=== PATIENT | male | born 1930 | race Hispanic/Latino ===

== ENCOUNTER 2016-07-31 10:01 | Emergency (ER) | payer BC, MEDICARE ==
[2016-07-31 10:16] VITALS: BMI 34.0
[2016-07-31 10:20] VITALS: TEMP 98.7
[2016-07-31] MEDS ORDERED: Albuterol-Ipratrop 3 mg / 0.5 (3 ml) UD IH STA ×3 (11:00→12:37)
[2016-07-31 11:37] VITALS: RESP 18
--- NOTE | 2016-07-31 12:03 | RAD ---
HISTORY: cough r/o pna COMPARISON: 10/21/2015 TECHNIQUE: Chest PA and lateral FINDINGS: LUNGS: No active pulmonary disease. PLEURA: No significant pleural effusion identified. No pneumothorax apparent. CARDIOVASCULAR: Normal heart size. Status post CABG. Sternotomy wires noted. OSSEOUS STRUCTURES: No significant abnormalities. VISUALIZED UPPER ABDOMEN: Normal. OTHER FINDINGS: None. IMPRESSION: No active disease.
--- NOTE | 2016-07-31 12:08 | ED PDOC ---
Arrival/HPI - General Chief Complaint: Cough, Cold, Congestion Time Seen by Provider: 07/31/16 10:55 Historian: Patient - History of Present Illness Narrative History of Present Illness (Text): 07/31/16 12:17 An 86 year old male, whose past medical history includes hypertension, diabetes and cardiac bypass, presents to the emergency department complaining of a productive cough for the past 2 weeks. Patient's daughter notes patient went to PMD who told patient to come to emergency department for a CXR. Patient denies any fever, body aches or any other complaints at this time. PMD: Dr. Cartagena Time/Duration: Other (2 weeks) Symptom Onset: Sudden Symptom Course: Unchanged Activities at Onset: Rest Context: Home Associated Symptoms (Text): none Past Medical History - Provider Review Nursing Documentation Reviewed: Yes - Infectious Disease Hx of Infectious Diseases: None - Tetanus Immunization Tetanus Immunization: Unknown - Cardiac Hx Cardiac Disorders: Yes (CAD, CABG) Hx Hypertension: Yes - Pulmonary Hx Respiratory Disorders: No - Neurological Hx Neurological Disorder: No Hx Alzheimer's Disease: No - HEENT Hx HEENT Disorder: No - Renal Hx Renal Disorder: No - Endocrine/Metabolic Hx Diabetes Mellitus Type 2: Yes - Hematological/Oncological Hx Blood Disorders: No - Integumentary Hx Dermatological Disorder: No - Musculoskeletal/Rheumatological Hx Falls: No Hx Fractures: Yes (Ankle fracture as a child) - Gastrointestinal Hx Gastrointestinal Disorders: No - Genitourinary/Gynecological Hx Genitourinary Disorders: No - Psychiatric Hx Depression: No Hx Emotional Abuse: No Hx Physical Abuse: No Hx Substance Use: No - Surgical History Hx Coronary Artery Bypass Graft: Yes (2007) Hx Open Heart Surgery: Yes (2007) - Anesthesia Hx Anesthesia: Yes Hx Anesthesia Reactions: No Hx Malignant Hyperthermia: No - Suicidal Assessment Feels Threatened In Home Enviroment: No Family/Social History - Physician Review Nursing Documentation Reviewed: Yes Family/Social History: No Known Family HX Smoking Status: Former Smoker Hx Alcohol Use: No Hx Substance Use: No Hx Substance Use Treatment: No Allergies/Home Meds Allergies/Adverse Reactions: Allergies No Known Allergies Allergy (Verified 07/31/16 10:16) Home Medications: Home Meds Medication Instructions Recorded Confirmed Aspirin [Aspir 81] 325 mg PO DAILY 05/01/12 07/31/16 Atorvastatin Calcium 20 mg PO DAILY 05/01/12 07/31/16 Glipizide 20 mg PO DAILY 05/01/12 07/31/16 Linagliptin [Tradjenta] 5 mg PO DAILY 05/01/12 07/31/16 Metoprolol Succinate 50 mg PO DAILY 05/01/12 07/31/16 Insulin Human Isophane (NPH) 30 units SC ACB 06/07/14 07/31/16 [Novolin N] Losartan [Cozaar] 50 mg PO DAILY 10/21/15 07/31/16 Apafm-2-Nlic Ethyl Esters [OMEGA 3] 1 cap PO TID 10/21/15 07/31/16 Review of Systems - Physician Review All systems were reviewed & negative as marked: Yes - Review of Systems Constitutional: absent: Fevers, Other (body aches) Eyes: Normal ENT: Normal Respiratory: Cough Cardiovascular: Normal Gastrointestinal: Normal Genitourinary Male: Normal Musculoskeletal: Normal Skin: Normal Neurological: Normal Endocrine: Normal Hemo/Lymphatic: Normal Psychiatric: Normal Physical Exam Vital Signs Reviewed: Yes Vital Signs Temp Pulse Resp BP Pulse Ox 07/31/16 12:19 63 18 124/69 94 L 07/31/16 11:37 65 18 126/75 93 L 07/31/16 10:19 98.7 F 86 19 172/76 H 93 L Temperature: Afebrile Blood Pressure: Hypertensive Pulse: Regular Respiratory Rate: Normal Appearance: Positive for: Well-Appearing, Non-Toxic, Comfortable Pain Distress: None Mental Status: Positive for: Alert and Oriented X 3 - Systems Exam Head: Present: Atraumatic, Normocephalic Pupils: Present: PERRL Extroacular Muscles: Present: EOMI Conjunctiva: Present: Normal Mouth: Present: Moist Mucous Membranes Neck: Present: Normal Range of Motion Respiratory/Chest: Present: Clear to Auscultation, Good Air Exchange. No: Respiratory Distress, Accessory Muscle Use Cardiovascular: Present: Regular Rate and Rhythm, Normal S1, S2. No: Murmurs Abdomen: Present: Normal Bowel Sounds. No: Tenderness, Distention, Peritoneal Signs Back: Present: Normal Inspection Upper Extremity: Present: Normal Inspection. No: Cyanosis, Edema Lower Extremity: Present: Normal Inspection. No: Edema Neurological: Present: GCS=15, CN II-XII Intact, Speech Normal Skin: Present: Warm, Dry, Normal Color. No: Rashes Psychiatric: Present: Alert, Oriented x 3, Normal Insight, Normal Concentration Medical Decision Making ED Course and Treatment: 07/31/16 12:12 Impression: An 86 year old male with a productive cough. Differential Diagnosis included but are not limited to: bronchitis vs. PNA Plan: -- chest xray -- Duoneb -- Reassess and disposition Prior Visits: Notes and results from previous visits were reviewed. Patient last reported to the emergency department on 03/11/16 for evaluation of right wrist pain and swelling. Progress Notes: 07/31/16 12:04 chest xray Creator : Bridger Tierney MD IMPRESSION: No active disease. On reevaluation patient feels much better. Lungs clear. Oxy sat 95-96% on room air. Patient able to walk around the ED without sob. He will follow up with his doctor in 1-2days. - Lab Interpretations Lab Results: 07/31/16 12:30 07/31/16 12:30 Lab Results 07/31/16 12:30: Sodium 136, Potassium 4.9, Chloride 98, Carbon Dioxide 32, Anion Gap 11, BUN 26 H, Creatinine 1.0, Est GFR ( Amer) > 60, Est GFR ( Non-Af Amer) > 60, Random Glucose 200 H, Calcium 9.0, Magnesium 2.0 07/31/16 12:30: WBC 9.7, RBC 5.30, Hgb 16.1, Hct 49.7, MCV 93.8, MCH 30.4, MCHC 32.4, RDW 14.4, Plt Count 125, MPV 11.1 H, Gran % 73.2 H, Lymph % (Auto) 17.9 L , [place] % (Auto) 6.9 H, Eos % (Auto) 1.8, Baso % (Auto) 0.2, Gran # 7.12 H, Lymph # 1.7, [place] # 0.7 H, Eos # 0.2, Baso # 0.02 I have reviewed the lab results: Yes - RAD Interpretation Radiology Orders: 07/31/16 11:00 CHEST TWO VIEWS (PA/LAT) [RAD] Stat - Medication Orders Current Medication Orders: Discontinued Medications Albuterol/Ipratropium (Duoneb 3 Mg/0.5 Mg (3 Ml) Ud) 3 ml IH STAT STA Stop: 07/31/16 11:01 Last Admin: 07/31/16 11:19 Dose: 3 ml Albuterol/Ipratropium (Duoneb 3 Mg/0.5 Mg (3 Ml) Ud) 3 ml IH STAT STA Stop: 07/31/16 11:54 Last Admin: 07/31/16 12:08 Dose: 3 ml Albuterol/Ipratropium (Duoneb 3 Mg/0.5 Mg (3 Ml) Ud) 3 ml IH STAT STA Stop: 07/31/16 12:38 Last Admin: 07/31/16 13:23 Dose: - Scribe Statement The provider has reviewed the documentation as recorded by the Galina Hayes Provider Scribe Attestation: All medical record entries made by the Scribe were at my direction and personally dictated by me. I have reviewed the chart and agree that the record accurately reflects my personal performance of the history, physical exam, medical decision making, and the department course for this patient. I have also personally directed, reviewed, and agree with the discharge instructions and disposition. Disposition/Present on Arrival - Present on Arrival Any Indicators Present on Arrival: No History of DVT/PE: No History of Uncontrolled Diabetes: No Urinary Catheter: No History of Decub. Ulcer: No History Surgical Site Infection Following: None - Disposition Have Diagnosis and Disposition been Completed?: Yes Diagnosis: Bronchitis Disposition: HOME/ ROUTINE Disposition Time: 13:24 Patient Plan: Discharge Condition: IMPROVED Discharge Instructions (ExitCare): Acute Bronchitis (ED) Additional Instructions: Mr Paul, thank you for letting us take care of you today. Your provider was Dr. Vargas. You were treated for Bronchitis. The emergency medical care you received today was directed at your acute symptoms. If you were prescribed any medication, please fill it and take as directed. It may take several days for your symptoms to resolve. Return to the Emergency Department if your symptoms worsen, do not improve, or if you have any other problems. Please contact your doctor or call one of the physicians/clinics you have been referred to that are listed on the Patient Visit Information form that is included in your discharge packet. Bring any paperwork you were given at discharge with you along with any medications you are taking to your follow up visit. Our treatment cannot replace ongoing medical care by a primary care provider (PCP) outside of the emergency department. Thank you for allowing the [facility] team to be part of your care today. If you had an X-Ray or CT scan: A Radiologist will review the ED reading if any change in treatment is needed we will contact you. If you had a blood, urine, or wound culture: It will take several days for the results, if any change in treatment is needed we will contact you. If you had an STI test: It will take 48 hours for the results. Please call after 1 week if you have not heard back. Prescriptions: Guaifenesin [Mucinex] 600 mg PO Q12 PRN #30 tab.er.12h PRN Reason: Cough Referrals: Alex Cartagena MD [Primary Care Provider] - Follow up with primary Forms: [email or web address] (Armenian)
[2016-07-31 12:19] VITALS: BP 124/69; PULSE 63; O2SAT 94
[2016-07-31 12:36] LABS: ADD MANUAL DIFF? NO
[2016-07-31 12:40] LABS: BASO # 0.02 K/mm3 (0.0-2.0); BASO % 0.2 % (0.0-3.0); EOS # 0.2 (0.0-0.7); EOS % 1.8 % (1.5-5.0); GRAN # 7.12 (1.4-6.5); GRAN % 73.2 % (50.0-68.0); HEMATOCRIT 49.7 % (42.0-52.0); LYMPH # 1.7 (1.2-3.4); LYMPH % 17.9 % (22.0-35.0); MEAN CELL VOLUME 93.8 fL (80.0-105.0); MEAN CORPUSCULAR HEMOGLOBIN 30.4 pg (25.0-35.0); MEAN CORPUSCULAR HGB CONC 32.4 g/dl (31.0-37.0); MEAN PLATELET VOLUME 11.1 fl (7.0-11.0); MONO # 0.7 (0.1-0.6); MONO % 6.9 % (1.0-6.0); PLATELET COUNT 125 10^3/uL (120.0-450.0); RED CELL DISTRIBUTION WIDTH 14.4 % (11.5-14.5); WHITE BLOOD COUNT 9.7 10^3/ul (4.5-11.0)
[2016-07-31 12:48] LABS: BLOOD UREA NITROGEN 26 mg/dL (7-21); CARBON DIOXIDE 32 mmol/L (21-33); CHLORIDE 98 mmol/L (98-107); GFR AFRICAN-AMERICAN > 60; GLUCOSE,RANDOM 200 mg/dL (70-110); POTASSIUM 4.9 mmol/L (3.6-5.0); SODIUM 136 mmol/L (132-148)
== END 2016-07-31 13:25 | disposition home or self-care (01) ==
LOC: ED 10:01
DX: J20.9 Acute bronchitis, unspecified (principal); I25.10 Atherosclerotic heart disease of native coronary artery without angina pectoris; I10 Essential (primary) hypertension; Z95.1 Presence of aortocoronary bypass graft; Z87.891 Personal history of nicotine dependence

== ENCOUNTER 2016-11-11 01:41 | Inpatient (IN) | payer BC, MEDICARE ==
[2016-11-11 01:46] VITALS: BMI 35.0
[2016-11-11] MEDS ORDERED: Morphine 2 mg/ml ISec IVP PRN ×2 (02:05→04:08)
--- NOTE | 2016-11-11 02:10 | ED PDOC ---
Arrival/HPI - General Chief Complaint: Abdominal Pain Time Seen by Provider: 11/11/16 01:43 Historian: Patient - History of Present Illness Narrative History of Present Illness (Text): 11/11/16 02:09 An 86 year old male, whose past medical history includes cardiac bypass, diabetes and hypertension, presents to the emergency department complaining of diffuse abdominal pain and back pain. Patient denies any nausea, vomiting, diarrhea or any other complaints at this time. PMD: Dr. Cartagena Symptom Onset: Sudden Symptom Course: Unchanged Activities at Onset: Rest Context: Home Past Medical History - Provider Review Nursing Documentation Reviewed: Yes - Infectious Disease Hx of Infectious Diseases: None - Tetanus Immunization Tetanus Immunization: Unknown - Cardiac Hx Cardiac Disorders: Yes (CAD, CABG) Hx Hypertension: Yes - Pulmonary Hx Respiratory Disorders: No - Neurological Hx Neurological Disorder: No Hx Alzheimer's Disease: No - HEENT Hx HEENT Disorder: No - Renal Hx Renal Disorder: No - Endocrine/Metabolic Hx Diabetes Mellitus Type 2: Yes - Hematological/Oncological Hx Blood Disorders: No - Integumentary Hx Dermatological Disorder: No - Musculoskeletal/Rheumatological Hx Falls: No Hx Fractures: Yes (Ankle fracture as a child) - Gastrointestinal Hx Gastrointestinal Disorders: No - Genitourinary/Gynecological Hx Genitourinary Disorders: No - Psychiatric Hx Depression: No Hx Emotional Abuse: No Hx Physical Abuse: No Hx Substance Use: No - Surgical History Hx Coronary Artery Bypass Graft: Yes (2007) Hx Open Heart Surgery: Yes (2007) - Anesthesia Hx Anesthesia: Yes Hx Anesthesia Reactions: No Hx Malignant Hyperthermia: No - Suicidal Assessment Feels Threatened In Home Enviroment: No Family/Social History - Physician Review Nursing Documentation Reviewed: Yes Family/Social History: No Known Family HX Smoking Status: Former Smoker Hx Alcohol Use: No Hx Substance Use: No Hx Substance Use Treatment: No Allergies/Home Meds Allergies/Adverse Reactions: Allergies No Known Allergies Allergy (Verified 11/11/16 01:48) Home Medications: Home Meds Medication Instructions Recorded Confirmed Aspirin [Aspir 81] 325 mg PO DAILY 05/01/12 11/11/16 Atorvastatin Calcium 20 mg PO DAILY 05/01/12 11/11/16 Glipizide 20 mg PO DAILY 05/01/12 11/11/16 Linagliptin [Tradjenta] 5 mg PO DAILY 05/01/12 11/11/16 Metoprolol Succinate 50 mg PO DAILY 05/01/12 11/11/16 Insulin Human Isophane (NPH) 30 units SC ACB 06/07/14 11/11/16 [Novolin N] Losartan [Cozaar] 50 mg PO DAILY 10/21/15 11/11/16 Review of Systems - Physician Review All systems were reviewed & negative as marked: Yes - Review of Systems Gastrointestinal: Abdominal Pain. absent: Diarrhea, Nausea, Vomiting Musculoskeletal: Back Pain Physical Exam Vital Signs Reviewed: Yes Vital Signs Temp Pulse Resp BP Pulse Ox 11/11/16 04:12 66 18 175/89 H 95 11/11/16 01:48 98.0 F 70 21 181/77 H 94 L 11/11/16 01:47 98.0 F 73 18 181/77 H 94 L Temperature: Afebrile Blood Pressure: Hypertensive Pulse: Regular Respiratory Rate: Normal Appearance: Positive for: Well-Appearing, Non-Toxic, Comfortable Pain Distress: None Mental Status: Positive for: Alert and Oriented X 3 - Systems Exam Head: Present: Atraumatic, Normocephalic Pupils: Present: PERRL Extroacular Muscles: Present: EOMI Conjunctiva: Present: Normal Mouth: Present: Moist Mucous Membranes Neck: Present: Normal Range of Motion Respiratory/Chest: Present: Clear to Auscultation, Good Air Exchange. No: Respiratory Distress, Accessory Muscle Use Cardiovascular: Present: Regular Rate and Rhythm, Normal S1, S2. No: Murmurs Abdomen: Present: Normal Bowel Sounds. No: Tenderness, Distention, Peritoneal Signs Back: Present: Normal Inspection Upper Extremity: Present: Normal Inspection. No: Cyanosis, Edema Lower Extremity: Present: Normal Inspection. No: Edema Neurological: Present: GCS=15, CN II-XII Intact, Speech Normal Skin: Present: Warm, Dry, Normal Color. No: Rashes Psychiatric: Present: Alert, Oriented x 3, Normal Insight, Normal Concentration Medical Decision Making ED Course and Treatment: 11/11/16 02:08 Impression: An 86 year old male with abdominal pain and back pain. Plan: -- EKG -- labs -- CT abd/pelvis -- Urinalysis -- Morphine, IV fluids, Zofran -- Reassess and disposition Prior Visits: Notes and results from previous visits were reviewed. Patient was last seen in the emergency department on 07/31/16 for evaluation of productive cough. Progress Notes: EKG: Ordered, reviewed, and independently interpreted the EKG. Rate : 71 BPM Rhythm : NSR Interpretation : Right bundle branch block, Nonspecific ST segment changes CT Abdomen and Pelvis Without Intravenous Contrast FINDINGS: Limitations: Lack of intravenous contrast. Motion artifact - mild. Lower thorax: Coronary artery calcifications. ABDOMEN: Liver: Unremarkable. Gallbladder and bile ducts: Calcified gallstones. Minimal haziness about gallbladder versus motion. No ductal dilation. Pancreas: Unremarkable. No ductal dilation. Spleen: No splenomegaly. 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 Kidneys and ureters: No renal calculi. No hydronephrosis. Stomach and bowel: Few scattered diverticula within colon. No associated inflammatory stranding. No definite mural thickening. No obstruction. Appendix: Normal caliber. No inflammation. PELVIS: Bladder: Few small calcifications/calculi along posterior wall of bladder. Reproductive: Mildly enlarged prostate. ABDOMEN and PELVIS: Intraperitoneal space: No significant fluid collection. No free air. Bones/joints: Median sternotomy. Degenerative changes of spine. No acute fracture. Soft tissues: Tiny umbilical hernia containing fat. Tiny RIGHT inguinal hernia containing fat. Vasculature: Extensive atherosclerotic disease. No aneurysm. Lymph nodes: No pathologically enlarged lymph nodes. IMPRESSION: 1. Cholelithiasis. Suggest ultrasound. 2. Bladder calcification/calculi. 3. Incidental/non-acute findings are described above. Dictated and Authenticated by: Jaya Resendez MD 11/11/2016 3:46 AM Eastern Time ([place] & [place]) case d/w dr justice accepts case 11/12/16 02:14 - Lab Interpretations Lab Results: 11/11/16 02:25 11/11/16 02:25 Lab Results 11/11/16 02:25: Sodium 141, Potassium 5.3 H, Chloride 98, Carbon Dioxide 36 H, Anion Gap 12, BUN 24 H, Creatinine 1.2, Est GFR ( Amer) > 60, Est GFR ( Non-Af Amer) 58, Random Glucose 279 H, Calcium 9.2, Total Bilirubin 0.6, AST 28 , ALT 40, Alkaline Phosphatase 68, Lactate Dehydrogenase 543, Total Creatine Kinase 66, Troponin I < 0.01, Total Protein 6.9, Albumin 3.8, Globulin 3.1, Albumin/Globulin Ratio 1.2, Amylase 81, Lipase 90 11/11/16 02:25: Urine Color Yellow, Urine Appearance Clear, Urine pH 6.0, Ur Specific [place] 1.020, Urine Protein 100 H, Urine Glucose (UA) >=1000, Urine Ketones Negative, Urine Blood Trace-intact H, Urine Nitrate Negative, Urine Bilirubin Negative, Urine Urobilinogen 0.2, Ur Leukocyte Esterase Negative, Urine RBC 0 - 2, Urine WBC 0 - 2, Ur Epithelial Cells 1 - 3, Urine Bacteria Small 11/11/16 02:25: PT 10.4, INR 0.96, APTT 25.8 11/11/16 02:25: WBC 7.7 D, RBC 5.38, Hgb 16.4, Hct 49.6, MCV 92.2, MCH 30.5, MCHC 33.1, RDW 14.2, Plt Count 127, MPV 10.5, Gran % 70.7 H, Lymph % (Auto) 20.2 L, [place] % (Auto) 7.2 H, Eos % (Auto) 1.6, Baso % (Auto) 0.3, Gran # 5.42, Lymph # 1.6, [place] # 0.6, Eos # 0.1, Baso # 0.02 I have reviewed the lab results: Yes - RAD Interpretation Radiology Orders: 11/11/16 02:04 ABD & PELVIS W/O PO OR IV CONT [CT] Stat - EKG Interpretation Interpreted by ED Physician: Yes Type: 12 lead EKG - Medication Orders Current Medication Orders: Acetaminophen (Tylenol 325mg Tab) 650 mg PO Q4H PRN PRN Reason: Fever >100.5 F Aspirin (Aspirin Chewable) 81 mg PO DAILY [facility] Last Admin: 11/11/16 10:41 Dose: 81 mg Sodium Chloride (Sodium Chloride 0.9%) 1,000 mls @ 80 mls/hr IV .[id number] [facility] Last Admin: 11/11/16 14:48 Dose: 80 mls/hr eMAR Start Stop Document 11/11/16 14:48 LMN (Rec: 11/11/16 14:48 LMN [id number]) Intravenous Solution Start Date 11/11/16 Start Time 15:00 Insulin Human Regular (Humulin R Low) 0 units SC ACHS [facility] PRN Reason: Protocol Last Admin: 11/11/16 22:05 Dose: Not Given Non-Admin Reason: Blood Sugar Parameter [facility] Blood Glucose Document 11/11/16 22:05 [facility] (Rec: 11/11/16 22:06 [id number] Blood Glucose Finger Stick Blood Glucose (70-120) 165 Losartan Potassium (Cozaar) 50 mg PO DAILY [facility] Last Admin: 11/11/16 10:41 Dose: 50 mg Losartan Potassium (Cozaar) 50 mg PO DAILY [facility] Metoprolol Succinate (Toprol Xl) 50 mg PO DAILY [facility] Last Admin: 11/11/16 11:19 Dose: 50 mg Morphine Sulfate (Morphine) 2 mg IVP Q4H PRN PRN Reason: Pain, moderate (4-7) Last Admin: 11/11/16 02:31 Dose: 2 mg [facility] Pain Assessment Document 11/11/16 02:31 RD (Rec: 11/11/16 02:31 RD [id number]) Pain Reassessment Is this a pain reassessment? No Sleep Is patient sleeping during reassessment? No Presence of Pain Presence of Pain Yes IVP Administration Document 11/11/16 02:31 RD (Rec: 11/11/16 02:31 RD [id number]) Charges for Administration # of IVP Administrations 1 Re-Assess: [facility] Pain Assessment Document 11/11/16 03:31 RD (Rec: 11/11/16 04:22 RD [id number]) Pain Reassessment Is this a pain reassessment? Yes Sleep Is patient sleeping during reassessment? No Presence of Pain Presence of Pain Yes Description Intensity of Pain at present 5 Morphine Sulfate (Morphine) 2 mg IVP Q4H PRN PRN Reason: Pain, moderate (4-7) Pantoprazole Sodium (Protonix Inj) 40 mg IVP Q12 [facility] Last Admin: 11/11/16 22:03 Dose: 40 mg IVP Administration Document 11/11/16 22:03 [facility] (Rec: 11/11/16 22:04 [id number]) Charges for Administration # of IVP Administrations 1 Discontinued Medications Metronidazole (Flagyl) 500 mg in 100 mls @ 100 mls/hr IVPB STAT STA PRN Reason: Protocol Stop: 11/11/16 05:07 Last Admin: 11/11/16 05:12 Dose: 100 mls/hr eMAR Start Stop Document 11/11/16 05:12 EM (Rec: 11/11/16 05:13 EM [facility] [id number]) Intravenous Solution Start Date 11/11/16 Start Time 05:12 End Date 11/11/16 End time 06:20 Total Infusion Time 68 Ceftriaxone Sodium (Rocephin 1 Gram Ivpb) 1 gm in 100 mls @ 200 mls/hr IVPB STAT STA PRN Reason: Protocol Stop: 11/11/16 04:37 Last Admin: 11/11/16 04:21 Dose: 200 mls/hr eMAR Start Stop Document 11/11/16 04:21 RD (Rec: 11/11/16 04:21 RD [id number]) Intravenous Solution Start Date 11/11/16 Start Time 04:21 End Date 11/11/16 End time 04:51 Total Infusion Time 30 Sodium Chloride (Sodium Chloride 0.9%) 1,000 mls @ 100 mls/hr IV .Q10H STA Stop: 11/11/16 14:04 Last Admin: 11/11/16 04:20 Dose: 100 mls/hr eMAR Start Stop Document 11/11/16 04:20 RD (Rec: 11/11/16 04:20 RD [id number]) Intravenous Solution Start Date 11/11/16 Start Time 04:20 Morphine Sulfate (Morphine) 2 mg IVP STAT STA Stop: 11/11/16 04:10 Last Admin: 11/11/16 04:18 Dose: 2 mg MAR Pain Assessment Document 11/11/16 04:18 RD (Rec: 11/11/16 04:21 RD [id number]) Pain Reassessment Is this a pain reassessment? Yes Sleep Is patient sleeping during reassessment? No Presence of Pain Presence of Pain Yes Description Intensity of Pain at present 5 IVP Administration Document 11/11/16 04:18 RD (Rec: 11/11/16 04:21 RD [id number]) Charges for Administration # of IVP Administrations 1 Ondansetron HCl (Zofran Inj) 4 mg IVP STAT STA Stop: 11/11/16 02:06 Last Admin: 11/11/16 02:27 Dose: 4 mg IVP Administration Document 11/11/16 02:27 RD (Rec: 11/11/16 02:31 RD [id number]) Charges for Administration # of IVP Administrations 1 - Scribe Statement The provider has reviewed the documentation as recorded by the Liseibmarion Hayes Provider Scribe Attestation: All medical record entries made by the Liseibe were at my direction and personally dictated by me. I have reviewed the chart and agree that the record accurately reflects my personal performance of the history, physical exam, medical decision making, and the department course for this patient. I have also personally directed, reviewed, and agree with the discharge instructions and disposition. Disposition/Present on Arrival - Present on Arrival Any Indicators Present on Arrival: No History of DVT/PE: No History of Uncontrolled Diabetes: No Urinary Catheter: No History of Decub. Ulcer: No History Surgical Site Infection Following: None - Disposition Have Diagnosis and Disposition been Completed?: Yes Diagnosis: Cholelithiasis, Abdominal pain Disposition: HOSPITALIZED Disposition Time: 04:04 Condition: FAIR
[2016-11-11] MEDS: Sodium Chloride 0.9% 1,000 ML IV SCH ×2 (02:31→14:48)
[2016-11-11 02:55] LABS: BASO # 0.02 K/mm3 (0.0-2.0); BASO % 0.3 % (0.0-3.0); EOS # 0.1 (0.0-0.7); EOS % 1.6 % (1.5-5.0); GRAN # 5.42 (1.4-6.5); GRAN % 70.7 % (50.0-68.0); HEMATOCRIT 49.6 % (42.0-52.0); LYMPH # 1.6 (1.2-3.4); LYMPH % 20.2 % (22.0-35.0); MEAN CELL VOLUME 92.2 fl (80.0-105.0); MEAN CORPUSCULAR HEMOGLOBIN 30.5 pg (25.0-35.0); MEAN CORPUSCULAR HGB CONC 33.1 g/dl (31.0-37.0); MEAN PLATELET VOLUME 10.5 fl (7.0-11.0); MONO # 0.6 (0.1-0.6); MONO % 7.2 % (1.0-6.0); RED CELL DISTRIBUTION WIDTH 14.2 % (11.5-14.5); URINE BILIRUBIN NEGATIVE (NEGATIVE); URINE BLOOD TRACE-INTACT (NEGATIVE); URINE GLUCOSE (UA) >=1000 mg/dL (NEGATIVE); URINE KETONE NEGATIVE (NEGATIVE); URINE LEUKOCYTE ESTERASE NEGATIVE Leu/uL (NEGATIVE); URINE PROTEIN 100 mg/dL (<30 mg/dL); URINE UROBILINOGEN 0.2 E.U./dL (<1 E.U./dL); WHITE BLOOD COUNT 7.7 10^3/ul (4.5-11.0)
[2016-11-11 03:01] LABS: INR 0.96 (0.93-1.08); PARTIAL THROMBOPLASTIN TIME 25.8 Seconds (23.7-30.8)
[2016-11-11 03:04] LABS: ALB/GLOB RATIO 1.2 (1.1-1.8); ALKALINE PHOSPHATASE 68 U/L (38-126); ALT/SGPT 40 U/L (7-56); AMYLASE 81 U/L (35-125); AST/SGOT 28 U/L (17-59); BILIRUBIN,TOTAL 0.6 mg/dL (0.2-1.3); BLOOD UREA NITROGEN 24 mg/dL (7-21); CALCIUM 9.2 mg/dL (8.4-10.5); CARBON DIOXIDE 36 mmol/L (21-33); CHLORIDE 98 mmol/L (98-107); GFR AFRICAN-AMERICAN > 60; GLUCOSE,RANDOM 279 mg/dL (70-110); LIPASE 90 U/L (23-300); SODIUM 141 mmol/L (132-148); TOTAL PROTEIN 6.9 g/dL (5.8-8.3)
[2016-11-11 03:08] LABS: URINE APPEARANCE CLEAR (CLEAR); URINE COLOR YELLOW (YELLOW)
[2016-11-11 03:13] LABS: URINE BACTERIA SMALL (NEG); URINE RBC 0 - 2 /hpf (0-2); URINE WBC 0 - 2 /hpf (0-6)
[2016-11-11 03:16] LABS: TROPONIN I < 0.01 ng/mL
[2016-11-11 03:18] LABS: POTASSIUM 5.3 mmol/L (3.6-5.0)
--- NOTE | 2016-11-11 03:47 | CT ---
EXAM: CT Abdomen and Pelvis Without Intravenous Contrast CLINICAL HISTORY: 86 years old, male; Pain; Abdominal pain; Generalized; Additional info: Abd pain TECHNIQUE: Axial computed tomography images of the abdomen and pelvis without intravenous contrast. All CT scans at this facility use one or more dose reduction techniques, viz.: automated exposure control; ma/kV adjustment per patient size (including targeted exams where dose is matched to indication; i.e. head); or iterative reconstruction technique. Coronal and sagittal reformatted images were created and reviewed. COMPARISON: No relevant prior studies available. FINDINGS: Limitations: Lack of intravenous contrast. Motion artifact - mild. Lower thorax: Coronary artery calcifications. ABDOMEN: Liver: Unremarkable. Gallbladder and bile ducts: Calcified gallstones. Minimal haziness about gallbladder versus motion. No ductal dilation. Pancreas: Unremarkable. No ductal dilation. Spleen: No splenomegaly. 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 Kidneys and ureters: No renal calculi. No hydronephrosis. Stomach and bowel: Few scattered diverticula within colon. No associated inflammatory stranding. No definite mural thickening. No obstruction. Appendix: Normal caliber. No inflammation. PELVIS: Bladder: Few small calcifications/calculi along posterior wall of bladder. Reproductive: Mildly enlarged prostate. ABDOMEN and PELVIS: Intraperitoneal space: No significant fluid collection. No free air. Bones/joints: Median sternotomy. Degenerative changes of spine. No acute fracture. Soft tissues: Tiny umbilical hernia containing fat. Tiny RIGHT inguinal hernia containing fat. Vasculature: Extensive atherosclerotic disease. No aneurysm. Lymph nodes: No pathologically enlarged lymph nodes. IMPRESSION: 1. Cholelithiasis. Suggest ultrasound. 2. Bladder calcification/calculi. 3. Incidental/non-acute findings are described above.
[2016-11-11] MEDS ORDERED: Sodium Chloride 0.9% 1,000 ML IV STA (04:05)
[2016-11-11] MEDS ORDERED: cefTRIAXone 1 gm 1 GM/100 ML BAG IVPB STA (04:08)
[2016-11-11] MEDS ORDERED: metroNIDAZOLE IV 500 mg/100 ml 500 MG/100 ML BAG IVPB STA (04:08)
[2016-11-11] MEDS ORDERED: Morphine 2 mg/ml ISec IVP STA (04:09)
[2016-11-11] MEDS: Insulin Reg-LOW-Coverage SC SCH ×4 (08:28→22:05)
--- NOTE | 2016-11-11 08:54 | CARD ---
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
[2016-11-11] MEDS: Metoprolol Succinate 50 mg XL Tab PO SCH (11:19)
--- NOTE | 2016-11-11 12:38 | HP ---
HISTORY OF PRESENT ILLNESS: Mr. Paul is 86 years old male admitted to the hospital with diffuse abdominal pain. No nausea, no vomiting. He also complains of back pain. CAT scan of the abdomen did not show any acute pathology. He has cholelithiasis , no cholecystitis. He has a history of hypertension, CABG. Blood pressure controlled on current medication. No chest pain. Cardiovascular has been stable. He also has diabetes mellitus type 2. Blood sugar control on current medication as per the patient. PAST MEDICAL HISTORY: Diabetes mellitus type 2, coronary artery disease status post CABG, hypertension, COPD. PAST SURGICAL HISTORY: CABG in 2007. PERSONAL HISTORY: Former smoker. FAMILY HISTORY: Noncontributory. No positive history in mother and father. SOCIAL HISTORY: Lives at home. ALLERGIES: NO KNOWN DRUG ALLERGIES. HOME MEDICATIONS: Aspirin 81 mg daily, Lipitor 20 mg daily, glipizide 20 mg daily, Tradjenta 5 mg daily, metoprolol 50 mg daily, NPH insulin, Cozaar 50 mg daily. REVIEW OF SYSTEMS: As per HPI. Rest of 12-point review of systems reviewed and negative. PHYSICAL EXAMINATION: GENERAL: Comfortable in bed, in no acute distress. VITAL SIGNS: Temperature 98.7, heart rate 70 per minute, blood pressure 180/70, heart rate is 94 per minute, respiratory rate 18 per minute. HEENT: Normal. Mucosa pale. NECK: No lymphadenopathy. CHEST: Air entry present and equal bilaterally. No added sound. CARDIOVASCULAR: S1 and S2 normal. No murmur and no gallop. ABDOMEN: Soft and nontender. No hepatosplenomegaly. EXTREMITIES: No edema. NEUROLOGIC: Alert and oriented x3. No focal sensory or motor deficits. SKIN: Warm and dry. No rash. SPINE: Nontender. IMAGING: CT abdomen as per HPI. LABORATORY DATA: White count 7.7, hemoglobin 16.5, hematocrit 49.6, platelet count 127. Sodium 141, potassium 5.3, BUN 24, creatinine 1.2, glucose 279, granulocyte 70%, lymphocyte 20%, monocyte 7%. UA negative. Troponin negative. Calcium 9.2, bilirubin 0.6, AST 28, ALT 40, alkaline phosphatase 68, LDH 543, creatinine 1.2, potassium 5.3, sodium 141. ASSESSMENT: 1. Abdominal pain, cholelithiasis. 2. Coronary artery disease. 3. Diabetes mellitus type 2. 4. Hypertension. 5. Granulocytosis, monocytosis. PLAN: He will be admitted to the hospital. CAT scan is negative for acute pathology in the abdomen except gall stones. no cholecystitis. We will order ultrasound, GI consult with Dr. Simpson is requested. morphine 4 mg q.4h IV . p.r.n for pain. . metoprolol 50 mg daily, sliding scale insulin ordered. Hold antidiabetic medication as he is NPO. We will give metoprolol 50 mg daily, losartan 50 mg daily. IV fluids at 100 mL an hour, Protonix 20 mg IV b.i.d. Jami Sifuentes MD MTDD
--- NOTE | 2016-11-11 15:15 | CON ---
DATE: 11/11/2016 HISTORY OF PRESENT ILLNESS: The patient is an 86-year-old male who presents with acute abdominal pain after a visit to [place]. His symptoms apparently have resolved. PAST MEDICAL HISTORY: The patient's past medical history is notable for history of coronary artery bypass surgery. Cardiac catheterization performed 1 year ago revealed an ejection fraction of 45% with a patent VALIENTE to the LAD. He suffers from diabetes mellitus, hypertension, hypercholesterolemia and He is obese No chest pain, no shortness of breath noted. The patient participates in all physical therapy program. SOCIAL HISTORY: Negative smoker. REVIEW OF SYSTEMS: Fourteen-point review of systems was reviewed in detail. No cardiac symptomatology is noted. PHYSICAL EXAMINATION: VITAL SIGNS: Blood pressure is 171/72, heart rate is in the 60s. NECK: Negative JVD. LUNGS: Without rales. HEART: Reveals S1 and S2. EXTREMITIES: Without edema. DIAGNOSTIC DATA: EKG shows normal sinus rhythm with left anterior hemiblock and a right bundle-branch block. Troponins are negative. Glucose is 279. IMPRESSION 1. Cholelithiasis. 2. Hypertension. 3. Stable angina. 4. Coronary artery disease. 5. History of coronary artery bypass surgery. 6. 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 7. Diabetes mellitus. 8. Hypercholesterolemia. 9. Obesity. Given these findings, the patient's cardiac status is at its baseline. We will restart the losartan for blood pressure control. Awaiting GI input. Bridger Moreno MD
[2016-11-12] MEDS: Sodium Chloride 0.9% 1,000 ML IV SCH ×2 (02:16→17:34)
[2016-11-12] MEDS: Insulin Reg-LOW-Coverage SC SCH ×4 (08:00→22:02)
--- NOTE | 2016-11-12 10:00 | US ---
HISTORY: abd pain, cholecystitis COMPARISON: Abdomen pelvis CT without contrast dated 11/11/2016. TECHNIQUE: Sonographic evaluation of the abdomen. FINDINGS: LIVER: Measures 19.9 cm. Normal echogenicity of the liver parenchyma. No mass. No intrahepatic bile duct dilatation. GALLBLADDER: Gallbladder is distended with cholelithiasis and sludge with no definitive mural thickening or pericholecystic fluid collection demonstrated. There is no sonographic Webb's sign either. Clinically correlate nevertheless for potential cholecystitis. COMMON BILE DUCT: Measures 5.9 mm. No stones. No dilatation. PANCREAS: The tail of the pancreas is obscured by overlying bowel gas with remainder unremarkable. RIGHT KIDNEY: Measures 11.1cm. Normal echogenicity. No calculus, mass, or hydronephrosis. LEFT KIDNEY: Measures 13.4cm. Normal echogenicity. No calculus, mass, or hydronephrosis. SPLEEN: Normal in size and contour. No mass. AORTA: No aneurysmal dilatation. IVC: Unremarkable. OTHER FINDINGS: None. IMPRESSION: 1. Relatively extensive cholelithiasis appears intermixed with sludge in the gallbladder lumen with moderate gallbladder distention appreciated. No mural thickening, pericholecystic fluid collection or other acute findings. Clinically correlate for potential cholecystitis nevertheless. 2. The tail of the pancreas is obscured by overlying bowel gas with remainder unremarkable.
[2016-11-12] MEDS: Metoprolol Succinate 50 mg XL Tab PO SCH (10:47)
--- NOTE | 2016-11-12 11:09 | PN ---
CARDIOLOGY FOLLOWUP DATE: 11/12/2016 SUBJECTIVE: The patient is without symptoms. OBJECTIVE: VITAL SIGNS: Blood pressure 171/76 and heart rate is in the 70s. NECK: Negative JVD. LUNGS: Without rales. HEART: S1 and S2. EXTREMITIES: Without edema. LABORATORY DATA: Pending from today. IMPRESSION: 1. Stable angina. 2. Coronary artery disease. 3. Ischemic dilated cardiomyopathy. 4. History of coronary artery bypass surgery. 5. Diabetes mellitus. 6. Obesity. 7. Hypertension. PLAN: Given these findings, the patient has been restarted on his losartan and his beta-blockers. Awaiting GI decision on his cholelithiasis. Bridger Moreno MD
--- NOTE | 2016-11-12 13:15 | CP.PCM.HP ---
History of Present Illness - History of Present Illness History of Present Illness: PGY1 Note for Dr. Ricks HPI: Pt is a 86 y/o male w/ PMHx of DM Type II presents with constant diffuse abdominal pain since Saturday night. According to the pt, he was eating a fried egg sandwich in bed and the pain started soon after. Nothing makes the pain better or worse. Pt describes the pain as an "annoying" pain and denies any radiation. Severity is a 8/10. Patient denies any prior episodes. The pain has now resolved. Patient states he does not want any surgical intervention PMH: IDDM, CAD, HTN, COPD PSH: CABG in 2007, Hernia Repair, ankle surgery, hand surgery Medications: Acetaminophen, Aspirin, Insulin, Losartan, Metoprolol, Morphine sulphate, Pantoprazole, glipizide, Atorvastatin Allergies: NKDA Past Patient History - Infectious Disease Hx of Infectious Diseases: None - Tetanus Immunizations Tetanus Immunization: Unknown - Past Social History Smoking Status: Former Smoker - CARDIAC Hx Cardiac Disorders: Yes (CAD, CABG) Hx Hypertension: Yes - PULMONARY Hx Respiratory Disorders: No - NEUROLOGICAL Hx Neurological Disorder: No Hx Alzheimer's Disease: No - HEENT Hx HEENT Problems: No - RENAL Hx Chronic Kidney Disease: No - ENDOCRINE/METABOLIC Hx Diabetes Mellitus Type 2: Yes - HEMATOLOGICAL/ONCOLOGICAL Hx Blood Disorders: No - INTEGUMENTARY Hx Dermatological Problems: No - MUSCULOSKELETAL/RHEUMATOLOGICAL Hx Falls: No Hx Fractures: Yes (Ankle fracture as a child) - GASTROINTESTINAL Hx Gastrointestinal Disorders: No - GENITOURINARY/GYNECOLOGICAL Hx Genitourinary Disorders: No - PSYCHIATRIC Hx Depression: No Hx Emotional Abuse: No Hx Physical Abuse: No Hx Substance Use: No - SURGICAL HISTORY Hx Coronary Artery Bypass Graft: Yes (2007) Hx Open Heart Surgery: Yes (2007) - ANESTHESIA Hx Anesthesia: Yes Hx Anesthesia Reactions: No Hx Malignant Hyperthermia: No Meds Allergies/Adverse Reactions: Allergies Allergy/AdvReac Type Severity Reaction Status Date / Time No Known Allergies Allergy Verified 11/11/16 01:48 Results - Vital Signs Recent Vital Signs: Last Vital Signs Temp 98.5 F 11/12/16 07:30 Pulse 74 11/12/16 10:47 Resp 20 11/12/16 07:30 BP 130/66 11/12/16 10:47 Pulse Ox 92 L 11/12/16 07:30 - Labs Result Diagrams: 11/11/16 02:25 11/11/16 02:25 Labs: Laboratory Results - last 24 hr 11/11/16 11/11/16 11/11/16 07:18 11:13 16:20 POC Glucose (mg/dL) 271 H 247 H 189 H 11/11/16 21:13 POC Glucose (mg/dL) 165 H
--- NOTE | 2016-11-12 13:19 | CP.PCM.CON ---
History of Present Illness - History of Present Illness History of Present Illness: PGY1 Note for Dr. Ricks HPI: Pt is a 86 y/o male w/ PMHx of DM Type II presents with constant diffuse abdominal pain since Saturday night. According to the pt, he was eating a fried egg sandwich in bed and the pain started soon after. Nothing makes the pain better or worse. Pt describes the pain as an "annoying" pain and denies any radiation. Severity is a 8/10. Patient denies any prior episodes. The pain has now resolved. Patient states he does not want any surgical intervention. Patient is now tolerating regular diet without N/V/D PMH: IDDM, CAD, HTN, COPD PSH: CABG in 2007, Hernia Repair, ankle surgery, hand surgery Medications: Acetaminophen, Aspirin, Insulin, Losartan, Metoprolol, Morphine sulphate, Pantoprazole, glipizide, Atorvastatin Allergies: NKDA Review of Systems - Constitutional Constitutional: As Per HPI - EENT Eyes: As Per HPI Ears: As Per HPI Nose/Mouth/Throat: As Per HPI - Cardiovascular Cardiovascular: As Per HPI - Respiratory Respiratory: As Per HPI - Gastrointestinal Gastrointestinal: As Per HPI - Genitourinary Genitourinary: As Per HPI - Reproductive: Male Reproductive:Male: As Per HPI - Musculoskeletal Musculoskeletal: As Per HPI - Integumentary Integumentary: As Per HPI - Neurological Neurological: As Per HPI - Psychiatric Psychiatric: As Per HPI - Endocrine Endocrine: As Per HPI - Hematologic/Lymphatic Hematologic: As Per HPI Past Patient History - Infectious Disease Hx of Infectious Diseases: None - Tetanus Immunizations Tetanus Immunization: Unknown - Past Social History Smoking Status: Former Smoker - CARDIAC Hx Cardiac Disorders: Yes (CAD, CABG) Hx Hypertension: Yes - PULMONARY Hx Respiratory Disorders: No - NEUROLOGICAL Hx Neurological Disorder: No Hx Alzheimer's Disease: No - HEENT Hx HEENT Problems: No - RENAL Hx Chronic Kidney Disease: No - ENDOCRINE/METABOLIC Hx Diabetes Mellitus Type 2: Yes - HEMATOLOGICAL/ONCOLOGICAL Hx Blood Disorders: No - INTEGUMENTARY Hx Dermatological Problems: No - MUSCULOSKELETAL/RHEUMATOLOGICAL Hx Falls: No Hx Fractures: Yes (Ankle fracture as a child) - GASTROINTESTINAL Hx Gastrointestinal Disorders: No - GENITOURINARY/GYNECOLOGICAL Hx Genitourinary Disorders: No - PSYCHIATRIC Hx Depression: No Hx Emotional Abuse: No Hx Physical Abuse: No Hx Substance Use: No - SURGICAL HISTORY Hx Coronary Artery Bypass Graft: Yes (2007) Hx Open Heart Surgery: Yes (2007) - ANESTHESIA Hx Anesthesia: Yes Hx Anesthesia Reactions: No Hx Malignant Hyperthermia: No Meds Allergies/Adverse Reactions: Allergies Allergy/AdvReac Type Severity Reaction Status Date / Time No Known Allergies Allergy Verified 11/11/16 01:48 - Medications Medications: Current Medications Acetaminophen (Tylenol 325mg Tab) 650 mg PO Q4H PRN PRN Reason: Fever >100.5 F Aspirin (Aspirin Chewable) 81 mg PO DAILY [facility] Last Admin: 11/12/16 10:47 Dose: 81 mg Sodium Chloride (Sodium Chloride 0.9%) 1,000 mls @ 80 mls/hr IV .[id number] [facility] [place] Last Admin: 11/12/16 02:16 Dose: 80 mls/hr Insulin Human Regular (Humulin R Low) 0 units SC ACHS [facility] [place] PRN Reason: Protocol Last Admin: 11/12/16 12:03 Dose: 3 units Losartan Potassium (Cozaar) 50 mg PO DAILY [facility] [place] Last Admin: 11/12/16 10:46 Dose: 50 mg Metoprolol Succinate (Toprol Xl) 50 mg PO DAILY [facility] [place] Last Admin: 11/12/16 10:47 Dose: 50 mg Morphine Sulfate (Morphine) 2 mg IVP Q4H PRN PRN Reason: Pain, moderate (4-7) Last Admin: 11/11/16 02:31 Dose: 2 mg Morphine Sulfate (Morphine) 2 mg IVP Q4H PRN PRN Reason: Pain, moderate (4-7) Pantoprazole Sodium (Protonix Inj) 40 mg IVP Q12 [facility] [place] Last Admin: 11/12/16 10:47 Dose: 40 mg Physical Exam - Constitutional Appears: No Acute Distress - Head Exam Head Exam: ATRAUMATIC, NORMAL INSPECTION, NORMOCEPHALIC - Eye Exam Eye Exam: EOMI Pupil Exam: NORMAL ACCOMODATION - ENT Exam ENT Exam: Mucous Membranes Moist - Respiratory Exam Respiratory Exam: Clear to Auscultation Bilateral, NORMAL BREATHING PATTERN - Cardiovascular Exam Cardiovascular Exam: REGULAR RHYTHM - GI/Abdominal Exam GI & Abdominal Exam: Normal Bowel Sounds, Soft. absent: Distended, Tenderness Additional comments: scar s/p CABG 2epigastric laproscopic scars - Back Exam Back exam: absent: CVA tenderness (L), CVA tenderness (R) - Neurological Exam Neurological exam: Alert, CN II-XII Intact, Oriented x3 - Psychiatric Exam Psychiatric exam: Normal Affect, Normal Mood - Skin Skin Exam: Dry, Intact, Normal Color, Warm Results - Vital Signs Recent Vital Signs: Last Vital Signs Temp 98.5 F 11/12/16 07:30 Pulse 74 11/12/16 10:47 Resp 20 11/12/16 07:30 BP 130/66 11/12/16 10:47 Pulse Ox 92 L 11/12/16 07:30 - Labs Result Diagrams: 11/11/16 02:25 11/11/16 02:25 Labs: Laboratory Results - last 24 hr 11/11/16 11/11/16 11/11/16 07:18 11:13 16:20 POC Glucose (mg/dL) 271 H 247 H 189 H 11/11/16 21:13 POC Glucose (mg/dL) 165 H Assessment & Plan - Assessment and Plan (Free Text) Assessment: 86 yo WM with RUQ pain Plan: * Pain has resolved and patient is tolerating diet * No surgical intervention at this time * Follow up in the office in 1 week for possible elective tatyana * Discussed with Dr. Millicent Ayers DO PGY1 - Date & Time Date: 11/12/16 Time: 13:18
--- NOTE | 2016-11-12 14:57 | PN ---
DATE: SUBJECTIVE: The patient is an 86-year-old morbidly obese male with watermelon inspector history of coronary artery disease, status post open heart surgery. He started to have abdominal discomfort with some nausea, so he came to emergency room, found to have cholelithiasis, seems to be doing little better. PHYSICAL EXAMINATION VITAL SIGNS: He is afebrile. Pulse is 74, respirations are 20, and blood pressure is 130/66. LUNGS: Bilateral fair airflow. No rhonchi or crackle. HEART: S1 and S2 audible. ABDOMEN: Soft and nontender. No rebound. No guarding. NEUROLOGICAL: He is awake and alert, communicative. Moves all extremities. Bilateral leg, no edema. LABORATORY DATA: Blood sugar is 165. LFTs are within normal limits. DIAGNOSTIC DATA: Had abdominal ultrasound done that shows the tail of the pancreas is obscured by overlying bowel gas. Remainder is unremarkable. He has cholelithiasis with sludge in the gallbladder, moderate gallbladder dilatation. No mural thickening, pericholecystic fluid or collection. ASSESSMENT: 1. Abdominal pain. 2. Cholelithiasis. 3. Insulin dependent diabetes. 4. Questionable diabetic gastroparesis. 5. Hypertension. 6. Hyperlipidemia. 7. Morbid obesity. PLAN: Discussed with Dr. Simpson, we will get surgical evaluation and i will order for HIDA scan and planned to have endoscopy tomorrow. After that if his HIDA is normal and endoscopy is normal, he will be discharged tomorrow. Harriet Arellano MD
[2016-11-13] MEDS: Pantoprazole 40 mg EC Tab PO SCH ×2 (05:46→17:27)
[2016-11-13 07:36] LABS: BASO # 0.01 K/mm3 (0.0-2.0); BASO % 0.1 % (0.0-3.0); EOS # 0.1 (0.0-0.7); EOS % 1.6 % (1.5-5.0); GRAN # 6.73 (1.4-6.5); GRAN % 77.8 % (50.0-68.0); HEMATOCRIT 48.1 % (42.0-52.0); LYMPH # 1.1 (1.2-3.4); LYMPH % 12.3 % (22.0-35.0); MEAN CELL VOLUME 91.8 fl (80.0-105.0); MEAN CORPUSCULAR HGB CONC 32.6 g/dl (31.0-37.0); MEAN PLATELET VOLUME 10.4 fl (7.0-11.0); MONO # 0.7 (0.1-0.6); MONO % 8.2 % (1.0-6.0); RED CELL DISTRIBUTION WIDTH 14.4 % (11.5-14.5); WHITE BLOOD COUNT 8.7 10^3/ul (4.5-11.0)
[2016-11-13 08:32] LABS: ALB/GLOB RATIO 1.2 (1.1-1.8); ALKALINE PHOSPHATASE 68 U/L (38-126); ALT/SGPT 34 U/L (7-56); AST/SGOT 33 U/L (17-59); BILIRUBIN,TOTAL 1.1 mg/dL (0.2-1.3); BLOOD UREA NITROGEN 16 mg/dL (7-21); CALCIUM 8.5 mg/dL (8.4-10.5); CARBON DIOXIDE 27 mmol/L (21-33); CHLORIDE 103 mmol/L (98-107); GFR AFRICAN-AMERICAN > 60; GLUCOSE,RANDOM 224 mg/dL (70-110); POTASSIUM 4.5 mmol/L (3.6-5.0); SODIUM 137 mmol/L (132-148); TOTAL PROTEIN 6.3 g/dL (5.8-8.3)
[2016-11-13] MEDS: Insulin Reg-LOW-Coverage SC SCH ×4 (08:52→21:35)
[2016-11-13] MEDS: Metoprolol Succinate 50 mg XL Tab PO SCH (10:31)
--- NOTE | 2016-11-13 12:40 | CP.PCM.PN ---
<Maggie Billy - Last Filed: 11/13/16 17:17> Subjective - Date & Time of Evaluation Date of Evaluation: 11/13/16 Time of Evaluation: 09:10 - Subjective Subjective: seen and examined at the bedside earlier today, just returned from first part of HIDA scan. Patient denies nausea, vomiting or abdominal pain. No acute overnight events reported. Objective - Vital Signs/Intake and Output Vital Signs (last 24 hours): Temp Pulse Resp BP Pulse Ox 98.0 F 78 22 132/72 93 L 11/13/16 08:00 11/13/16 10:30 11/13/16 08:00 11/13/16 10:31 11/13/16 08:00 Intake and Output: 11/13/16 11/13/16 06:59 18:59 Intake Total 360 Output Total 1100 Balance -740 - Medications Medications: Current Medications Acetaminophen (Tylenol 325mg Tab) 650 mg PO Q4H PRN PRN Reason: Fever >100.5 F Aspirin (Aspirin Chewable) 81 mg PO DAILY [facility] Last Admin: 11/13/16 10:30 Dose: 81 mg Atorvastatin Calcium (Lipitor) 20 mg PO DIN [facility] Last Admin: 11/12/16 22:04 Dose: 20 mg Sodium Chloride (Sodium Chloride 0.9%) 1,000 mls @ 80 mls/hr IV .[id number] [facility] Last Admin: 11/12/16 17:34 Dose: 80 mls/hr Insulin Human Regular (Humulin R Low) 0 units SC ACHS [facility] PRN Reason: Protocol Last Admin: 11/13/16 12:13 Dose: Not Given Losartan Potassium (Cozaar) 50 mg PO DAILY [facility] Last Admin: 11/13/16 10:30 Dose: 50 mg Metoprolol Succinate (Toprol Xl) 50 mg PO DAILY [facility] Last Admin: 11/13/16 10:31 Dose: 50 mg Morphine Sulfate (Morphine) 2 mg IVP Q4H PRN PRN Reason: Pain, moderate (4-7) Last Admin: 11/11/16 02:31 Dose: 2 mg Morphine Sulfate (Morphine) 2 mg IVP Q4H PRN PRN Reason: Pain, moderate (4-7) Pantoprazole Sodium (Protonix Ec Tab) 40 mg PO Q12H [facility] Last Admin: 11/13/16 05:46 Dose: Not Given - Labs Labs: 11/13/16 07:31 11/13/16 05:00 PT 10.4 Seconds (9.9-11.8) 11/11/16 02:25 INR 0.96 (0.93-1.08) 11/11/16 02:25 APTT 25.8 Seconds (23.7-30.8) 11/11/16 02:25 - Constitutional Appears: No Acute Distress - Head Exam Head Exam: NORMOCEPHALIC - Eye Exam Eye Exam: Normal appearance. absent: Scleral icterus - ENT Exam ENT Exam: Mucous Membranes Moist - Respiratory Exam Respiratory Exam: NORMAL BREATHING PATTERN. absent: Respiratory Distress - Cardiovascular Exam Cardiovascular Exam: +S1, +S2 - GI/Abdominal Exam GI & Abdominal Exam: Soft, Normal Bowel Sounds. absent: Guarding, Tenderness, Rebound - Extremities Exam Extremities Exam: Normal Capillary Refill. absent: Calf Tenderness, Pedal Edema - Neurological Exam Neurological Exam: Alert, Awake, Oriented x3 - Skin Skin Exam: Dry, Warm Assessment and Plan - Assessment and Plan (Free Text) Assessment: Assessment: Abdominal pain R/o Cholecystitis Cholelithiasis Probable diabetic gastroparesis History of diabetes mellitus Obesity Hypertension History of colon polyps, last colonoscopy was many years ago Plan: Follow up HIDA scan, patient needs to return in afternoon for second part Continue PPI OD NPO currently for testing and possible endoscopy,depending on HIDA scan results.Continue IV fluids On aspirin surgical FU Called patient's daughter Destiney Paul, requesting for patient's PCP to discuss possibility of upper endoscopy if HIDA scan is negative, daughter and patient reluctant. Seen and discussed with Dr. Simpson. ADDENDUM: HIDA : GB not visualized, for OR tomorrow <Deshaun Simpson V - Last Filed: 11/13/16 20:05> Objective - Vital Signs/Intake and Output Vital Signs (last 24 hours): Temp Pulse Resp BP Pulse Ox 98.7 F 77 20 150/71 97 11/13/16 16:00 11/13/16 16:00 11/13/16 16:00 11/13/16 16:00 11/13/16 16:00 - Medications Medications: Current Medications Acetaminophen (Tylenol 325mg Tab) 650 mg PO Q4H PRN PRN Reason: Fever >100.5 F Aspirin (Aspirin Chewable) 81 mg PO DAILY [facility] Last Admin: 11/13/16 10:30 Dose: 81 mg Atorvastatin Calcium (Lipitor) 20 mg PO DIN [facility] Last Admin: 11/13/16 16:44 Dose: 20 mg Sodium Chloride (Sodium Chloride 0.9%) 1,000 mls @ 80 mls/hr IV .[id number] [facility] Last Admin: 11/13/16 18:42 Dose: 80 mls/hr Insulin Human Regular (Humulin R Low) 0 units SC ACHS [facility] PRN Reason: Protocol Last Admin: 11/13/16 16:43 Dose: 3 units Losartan Potassium (Cozaar) 50 mg PO DAILY [facility] Last Admin: 11/13/16 10:30 Dose: 50 mg Metoprolol Succinate (Toprol Xl) 50 mg PO DAILY [facility] Last Admin: 11/13/16 10:31 Dose: 50 mg Morphine Sulfate (Morphine) 2 mg IVP Q4H PRN PRN Reason: Pain, moderate (4-7) Last Admin: 11/11/16 02:31 Dose: 2 mg Morphine Sulfate (Morphine) 2 mg IVP Q4H PRN PRN Reason: Pain, moderate (4-7) Pantoprazole Sodium (Protonix Ec Tab) 40 mg PO Q12H [facility] Last Admin: 11/13/16 17:27 Dose: 40 mg - Labs Labs: 11/13/16 07:31 11/13/16 05:00 PT 10.4 Seconds (9.9-11.8) 11/11/16 02:25 INR 0.96 (0.93-1.08) 11/11/16 02:25 APTT 25.8 Seconds (23.7-30.8) 11/11/16 02:25 Attending/Attestation - Attestation I have personally seen and examined this patient.: Yes I have fully participated in the care of the patient.: Yes I have reviewed all pertinent clinical information, including history, physical exam and plan: Yes Notes (Text): This is an addendum to GI progress report dictated by Maggie Billy APN.The patient was seen and examined earlier. Medical records, lab studies, imagings were reviewed. Last 24 hours events reviewed. Agreed with the above treatment plan as outlined in Maggie Billy APN's notes the with the addition of the following feels better. Normal discomfort has improved On examination abdomen soft no significant tenderness HIDA scan reviewed nonvisualized Multiple gallstones Patient scheduled for OR tomorrow for cholecystectomy Discussed with the Dr. Arellano and the nursing surgical services director 11/13/16 20:03
--- NOTE | 2016-11-13 13:18 | CP.PCM.PN ---
Subjective - Date & Time of Evaluation Date of Evaluation: 11/13/16 Time of Evaluation: 13:15 - Subjective Subjective: Surgery Pt s&e. NAEON. Pt had HIDA done today. Denies F/C/N/V/D/CP/SOB. + amb. + void. Objective - Vital Signs/Intake and Output Vital Signs (last 24 hours): Temp Pulse Resp BP Pulse Ox 98.0 F 78 22 132/72 93 L 11/13/16 08:00 11/13/16 10:30 11/13/16 08:00 11/13/16 10:31 11/13/16 08:00 Intake and Output: 11/13/16 11/13/16 06:59 18:59 Intake Total 360 Output Total 1100 Balance -740 - Medications Medications: Current Medications Acetaminophen (Tylenol 325mg Tab) 650 mg PO Q4H PRN PRN Reason: Fever >100.5 F Aspirin (Aspirin Chewable) 81 mg PO DAILY [facility] Last Admin: 11/13/16 10:30 Dose: 81 mg Atorvastatin Calcium (Lipitor) 20 mg PO DIN [facility] Last Admin: 11/12/16 22:04 Dose: 20 mg Sodium Chloride (Sodium Chloride 0.9%) 1,000 mls @ 80 mls/hr IV .[id number] [facility] Last Admin: 11/12/16 17:34 Dose: 80 mls/hr Insulin Human Regular (Humulin R Low) 0 units SC ACHS [facility] PRN Reason: Protocol Last Admin: 11/13/16 12:13 Dose: Not Given Losartan Potassium (Cozaar) 50 mg PO DAILY [facility] Last Admin: 11/13/16 10:30 Dose: 50 mg Metoprolol Succinate (Toprol Xl) 50 mg PO DAILY [facility] Last Admin: 11/13/16 10:31 Dose: 50 mg Morphine Sulfate (Morphine) 2 mg IVP Q4H PRN PRN Reason: Pain, moderate (4-7) Last Admin: 11/11/16 02:31 Dose: 2 mg Morphine Sulfate (Morphine) 2 mg IVP Q4H PRN PRN Reason: Pain, moderate (4-7) Pantoprazole Sodium (Protonix Ec Tab) 40 mg PO Q12H [facility] Last Admin: 11/13/16 05:46 Dose: Not Given - Labs Labs: 11/13/16 07:31 11/13/16 05:00 PT 10.4 Seconds (9.9-11.8) 11/11/16 02:25 INR 0.96 (0.93-1.08) 11/11/16 02:25 APTT 25.8 Seconds (23.7-30.8) 11/11/16 02:25 - Constitutional Appears: No Acute Distress - Head Exam Head Exam: ATRAUMATIC, NORMAL INSPECTION, NORMOCEPHALIC - Eye Exam Eye Exam: EOMI, Normal appearance, PERRL Pupil Exam: NORMAL ACCOMODATION, PERRL - ENT Exam ENT Exam: Mucous Membranes Moist, Normal Exam - Neck Exam Neck Exam: Full ROM, Normal Inspection. absent: Lymphadenopathy - Respiratory Exam Respiratory Exam: Clear to Ausculation Bilateral, NORMAL BREATHING PATTERN - Cardiovascular Exam Cardiovascular Exam: REGULAR RHYTHM, +S1, +S2. absent: Murmur - GI/Abdominal Exam GI & Abdominal Exam: Soft, Tenderness, Normal Bowel Sounds. absent: Distended, Firm, Guarding, Rigid - Extremities Exam Extremities Exam: Full ROM, Normal Capillary Refill, Normal Inspection. absent : Joint Swelling, Pedal Edema - Back Exam Back Exam: NORMAL INSPECTION - Neurological Exam Neurological Exam: Alert, Awake, CN II-XII Intact, Normal Gait, Oriented x3 - Psychiatric Exam Psychiatric exam: Normal Affect, Normal Mood - Skin Skin Exam: Dry, Intact, Normal Color, Warm Assessment and Plan - Assessment and Plan (Free Text) Assessment: Cholecystits HIDA : unvisualized GB after 4hrs. contrast in duodenum. -NPO after midnight -Will plan on OR -IVF -Medical management NASIMA Ricks
--- NOTE | 2016-11-13 13:51 | NM ---
PROCEDURE: Nuclear Medicine Hepatobiliary Scan HISTORY: cholelithiasis COMPARISON: None available. TECHNIQUE: 6.8 mCi of technetium 99m Mebrofenin was administered intravenously. Planar images of the abdomen were obtained at 5 min intervals to 60 mins. Delayed images were also obtained. FINDINGS: LIVER: Timely and homogenous uptake. COMMON BILE DUCT: identified at 30 mins. GALLBLADDER: Not visualized even on 4 hour delayed imaging SMALL BOWEL: Identified at 45 mins. IMPRESSION: Nonvisualization of the gallbladder consistent with acute cholecystitis
--- NOTE | 2016-11-13 15:09 | DS ---
HISTORY OF PRESENT ILLNESS: The patient is 86 years old, seen and examined sitting in chair, n.p.o., having HIDA scan done. Denies any chest pain. No shortness of breath, no abdominal pain, no nausea or vomiting, no hemoptysis, no hematemesis. He is anxious to go home. PHYSICAL EXAMINATION: VITAL SIGNS: He is afebrile. Pulse 67, respirations 22, and blood pressure 132/72. LUNGS: Bilateral fair air flow. No rhonchi or crackle. HEART: S1 and S2 audible. ABDOMEN: Soft. Nontender. No rebound. No guarding. NEUROLOGIC: The patient is awake and alert, communicative. LABORATORY DATA: WBC is 8.7, hemoglobin 15, hematocrit 48, platelets 102. Chemistry: Sodium 137, potassium 4.5, chloride 103, CO2 of 27, BUN 16, creatinine 0.9, blood sugar of 218. ASSESSMENT: 1. Cholelithiasis with sludge in the gallbladder and moderate gallbladder distention. 2. Insulin-dependent diabetes. 3. Morbid obesity. 4. Coronary artery disease. 5. Hyperlipidemia. PLAN: The patient is getting HIDA scan. We will follow that and the patient was evaluated by a surgeon and plan is to have elective cholecystectomy done as an outpatient. Once HIDA scan is completed, he can be discharged later on today. Harriet Arellano MD
[2016-11-13 16:46] VITALS: RESP 20
--- NOTE | 2016-11-13 17:47 | PN ---
DATE: 11/13/2016 CARDIOLOGY FOLLOWUP SUBJECTIVE: The patient is asymptomatic. PHYSICAL EXAMINATION: VITAL SIGNS: Blood pressure 132/72, heart rate in the 70s. NECK: Negative JVD. LUNGS: Without rales. HEART: S1 and S2. EXTREMITIES: Without edema. LABORATORY DATA: Hemoglobin is 15.7. Chemistries, glucose is 224. IMPRESSION: 1. Cholelithiasis. 2. Stable angina. 3. History of coronary bypass surgery. 4. Ischemic cardiomyopathy with an ejection fraction of 45%. 5. Stable angina. 6. Hypertension. 7. Obesity. PLAN: Given these findings, the patient is at increased risk for his surgery given his comorbidities and coronary artery disease. However, his cardiac status is at its optimum at this time. Bridger Moreno MD
[2016-11-13] MEDS: Sodium Chloride 0.9% 1,000 ML IV SCH (18:42)
[2016-11-13] MEDS: HYDROmorphone 0.5 mg/0.5 ml ISec IVP PRN (21:17)
[2016-11-13] MEDS: Insulin Detemir 100 units/ml Vial (Levemir) SC SCH (21:17)
[2016-11-14] MEDS: HYDROmorphone 0.5 mg/0.5 ml ISec IVP PRN (02:05)
[2016-11-14] MEDS: Metoprolol Succinate 50 mg XL Tab PO SCH ×2 (06:07→14:39)
[2016-11-14 06:52] LABS: BASO # 0.01 K/mm3 (0.0-2.0); BASO % 0.1 % (0.0-3.0); EOS % 0.4 % (1.5-5.0); GRAN # 8.78 (1.4-6.5); GRAN % 82.7 % (50.0-68.0); HEMATOCRIT 48.8 % (42.0-52.0); LYMPH # 0.8 (1.2-3.4); LYMPH % 7.8 % (22.0-35.0); MEAN CELL VOLUME 90.9 fl (80.0-105.0); MEAN CORPUSCULAR HEMOGLOBIN 30.2 pg (25.0-35.0); MEAN CORPUSCULAR HGB CONC 33.2 g/dl (31.0-37.0); RED CELL DISTRIBUTION WIDTH 14.2 % (11.5-14.5); WHITE BLOOD COUNT 10.6 10^3/ul (4.5-11.0)
[2016-11-14 07:01] LABS: INR 0.97 (0.93-1.08); PARTIAL THROMBOPLASTIN TIME 23.1 Seconds (23.7-30.8)
[2016-11-14 07:14] LABS: ALB/GLOB RATIO 1.2 (1.1-1.8); ALKALINE PHOSPHATASE 65 U/L (38-126); ALT/SGPT 36 U/L (7-56); AST/SGOT 34 U/L (17-59); BILIRUBIN,TOTAL 1.4 mg/dL (0.2-1.3); BLOOD UREA NITROGEN 13 mg/dL (7-21); CALCIUM 8.5 mg/dL (8.4-10.5); CARBON DIOXIDE 30 mmol/L (21-33); CHLORIDE 99 mmol/L (98-107); GFR AFRICAN-AMERICAN > 60; GLUCOSE,RANDOM 220 mg/dL (70-110); POTASSIUM 4.3 mmol/L (3.6-5.0); SODIUM 138 mmol/L (132-148); TOTAL PROTEIN 6.7 g/dL (5.8-8.3)
[2016-11-14] MEDS: Pantoprazole 40 mg EC Tab PO SCH ×2 (07:26→17:14)
[2016-11-14] MEDS ORDERED: Iohexol 240 (50 ml) ONE (07:42)
[2016-11-14] MEDS ORDERED: Collagen Hemostat Powder ONE (07:42)
[2016-11-14] MEDS ORDERED: Etomidate 20 mg/10ml Inj IV ONE (07:54)
[2016-11-14] MEDS ORDERED: Rocuronium 10 mg/ml (5 ml) ONE (07:55)
[2016-11-14] MEDS ORDERED: Phenylephrine 10 mg/ml Inj ONE (07:56)
[2016-11-14] MEDS: Bupivacaine 0.5% Inj(30mL) ONE ×2 (08:15→10:09)
[2016-11-14] MEDS ORDERED: Neostigmine Methylsulfate 3mg/3ml Syringe IV ONE ×2 (09:47→10:11)
--- NOTE | 2016-11-14 10:17 | CP.PCM.PN ---
<Maggie Billy - Last Filed: 11/14/16 10:16> Subjective - Date & Time of Evaluation Date of Evaluation: 11/14/16 Time of Evaluation: 07:45 - Subjective Subjective: Seen and examined earlier today in SDS awaiting to go to OR. Chart was reviewed. Patient awaiting to go for a lap Cholecystectomy. Denies nausea, vomiting, or abdominal pain at this time. No reports of fever or chills. Objective - Vital Signs/Intake and Output Vital Signs (last 24 hours): Temp Pulse Resp BP Pulse Ox 98.5 F 72 20 176/76 H 95 11/14/16 07:58 11/14/16 07:58 11/14/16 07:58 11/14/16 07:58 11/14/16 07:58 Intake and Output: 11/14/16 11/14/16 06:59 18:59 Intake Total 2440 0 Output Total 300 Balance 2140 0 - Medications Medications: Current Medications Acetaminophen (Tylenol 325mg Tab) 650 mg PO Q4H PRN PRN Reason: Fever >100.5 F Aspirin (Aspirin Chewable) 81 mg PO DAILY [facility] Last Admin: 11/13/16 10:30 Dose: 81 mg Atorvastatin Calcium (Lipitor) 20 mg PO DIN [facility] Last Admin: 11/13/16 16:44 Dose: 20 mg Hydromorphone HCl (Dilaudid) 0.5 mg IVP Q4H PRN PRN Reason: Pain, severe (8-10) Last Admin: 11/14/16 02:05 Dose: 0.5 mg Sodium Chloride (Sodium Chloride 0.9%) 1,000 mls @ 80 mls/hr IV .[id number] [facility] Last Admin: 11/13/16 18:42 Dose: 80 mls/hr Insulin Detemir (Levemir) 10 unit SC HS [facility] Last Admin: 11/13/16 21:17 Dose: 10 unit Insulin Human Regular (Humulin R Low) 0 units SC ACHS [facility] PRN Reason: Protocol Last Admin: 11/13/16 21:35 Dose: Not Given Losartan Potassium (Cozaar) 50 mg PO DAILY [facility] Last Admin: 11/13/16 10:30 Dose: 50 mg Metoprolol Succinate (Toprol Xl) 50 mg PO DAILY [facility] Last Admin: 11/14/16 06:07 Dose: 50 mg Morphine Sulfate (Morphine) 2 mg IVP Q4H PRN PRN Reason: Pain, moderate (4-7) Pantoprazole Sodium (Protonix Ec Tab) 40 mg PO Q12H [facility] Last Admin: 11/14/16 07:26 Dose: Not Given Zolpidem Tartrate (Ambien) 5 mg PO HS PRN; Protocol PRN Reason: Insomnia - Labs Labs: 11/14/16 06:30 11/14/16 06:30 PT 10.5 Seconds (9.9-11.8) 11/14/16 06:30 INR 0.97 (0.93-1.08) 11/14/16 06:30 APTT 23.1 Seconds (23.7-30.8) L 11/14/16 06:30 - Constitutional Appears: No Acute Distress - Eye Exam Eye Exam: Normal appearance. absent: Scleral icterus - ENT Exam ENT Exam: Mucous Membranes Moist - Neck Exam Neck Exam: Normal Inspection - Respiratory Exam Respiratory Exam: Decreased Breath Sounds, NORMAL BREATHING PATTERN. absent: Rales, Wheezes, Respiratory Distress - Cardiovascular Exam Cardiovascular Exam: +S1, +S2 - GI/Abdominal Exam GI & Abdominal Exam: Soft, Normal Bowel Sounds. 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 Seen and discussed with Dr. Simpson. <Deshaun Simpson V - Last Filed: 11/14/16 21:27> Objective - Vital Signs/Intake and Output Vital Signs (last 24 hours): Temp Pulse Resp BP Pulse Ox 97.4 F L 71 20 120/55 L 97 11/14/16 16:18 11/14/16 16:18 11/14/16 16:18 11/14/16 16:18 11/14/16 16:18 Intake and Output: 11/14/16 11/15/16 18:59 06:59 Intake Total 600 240 Balance 600 240 - Medications Medications: Current Medications Acetaminophen (Tylenol 325mg Tab) 650 mg PO Q4H PRN PRN Reason: Fever >100.5 F Aspirin (Aspirin Chewable) 81 mg PO DAILY [facility] Last Admin: 11/14/16 13:20 Dose: Not Given Atorvastatin Calcium (Lipitor) 20 mg PO DIN [facility] Last Admin: 11/14/16 17:13 Dose: 20 mg Hydromorphone HCl (Dilaudid) 1 mg IVP Q4H PRN PRN Reason: Pain, severe (8-10) Sodium Chloride (Sodium Chloride 0.9%) 1,000 mls @ 80 mls/hr IV .[id number] [facility] Last Admin: 11/14/16 17:12 Dose: 80 mls/hr Insulin Detemir (Levemir) 10 unit SC HS [facility] Last Admin: 11/13/16 21:17 Dose: 10 unit Insulin Human Regular (Humulin R Low) 0 units SC ACHS [facility] PRN Reason: Protocol Last Admin: 11/14/16 17:13 Dose: 3 units Losartan Potassium (Cozaar) 50 mg PO DAILY [facility] Last Admin: 11/14/16 13:20 Dose: Not Given Metoprolol Succinate (Toprol Xl) 50 mg PO DAILY [facility] Last Admin: 11/14/16 14:39 Dose: Not Given Pantoprazole Sodium (Protonix Ec Tab) 40 mg PO Q12H [facility] Last Admin: 11/14/16 17:14 Dose: 40 mg Zolpidem Tartrate (Ambien) 5 mg PO HS PRN; Protocol PRN Reason: Insomnia - Labs Labs: 11/14/16 15:40 11/14/16 15:40 PT 10.5 Seconds (9.9-11.8) 11/14/16 06:30 INR 0.97 (0.93-1.08) 11/14/16 06:30 APTT 23.1 Seconds (23.7-30.8) L 11/14/16 06:30 Attending/Attestation - Attestation I have personally seen and examined this patient.: Yes I have fully participated in the care of the patient.: Yes I have reviewed all pertinent clinical information, including history, physical exam and plan: Yes Notes (Text): This is an addendum to GI progress report dictated by Maggie Billy APN.The patient was seen and examined earlier. Medical records, lab studies, imagings were reviewed. Last 24 hours events reviewed. Agreed with the above treatment plan as outlined in Maggie Billy APN's notes the with the addition of the following Status post laparoscopic cholecystectomy with IOC Will discuss with the surgery 11/14/16 21:26
[2016-11-14] MEDS ORDERED: HYDROmorphone 0.5 mg/0.5 ml ISec IVP PRN (10:24)
--- NOTE | 2016-11-14 10:25 | PCM.SURG1 ---
Surgeon's Initial Post Op Note - Surgeon's Notes Surgeon: MD [employer] Specialist: Octavia PGY2, Hari PGY1 Pre-Operative Diagnosis: Acute Cholecystitis Operative Findings: inflammed gallbladder Post-Operative Diagnosis: Acute cholecystitis Operation Performed: Laparoscopic cholecystectomy Specimen/Specimens Removed: Gallbladder, sludge, stones Estimated Blood Loss: EBL {In ML}: 50 Date of Surgery/Procedure: 11/14/16 Time of Surgery/Procedure: 08:30
[2016-11-14] MEDS ORDERED: Lactated Ringer's 1,000 ML IV SCH (10:30)
--- NOTE | 2016-11-14 10:42 | RAD ---
HISTORY: pre op COMPARISON: 07/31/2016 TECHNIQUE: Chest PA and lateral FINDINGS: LUNGS: A 1.5 cm nodular opacity projects over the right upper lobe its origin- pulmonary or osseous is unclear. It is not appreciated on the prior study. Current study is a marked apical lordotic projection impeding optimal evaluation an optimal assessment. PLEURA: Baby opacity projects over the left inferolateral hemithorax appreciated such on the prior study some of this may be summation and due to projectional effects. No pneumothorax apparent. CARDIOVASCULAR: Cardiomegaly. Midline sternal wires -appearance similar. Central pulmonary vasculature probably chronically top-normal OSSEOUS STRUCTURES: Thoracic spondylosis. Bilateral shoulder arthrosis. Sternotomy VISUALIZED UPPER ABDOMEN: Normal. OTHER FINDINGS: None. IMPRESSION: Limited exam given the apical lordotic projection Interval changes perceived: Right upper lobe 1.5 cm nodular opacity - right upper pulmonary lobe nodule diagnosis to consider. CT chest recommended. This should also clarify the left inferolateral interval increase opacity perceived here
[2016-11-14] MEDS: Insulin Reg-LOW-Coverage SC SCH ×4 (13:21→21:52)
[2016-11-14 15:51] LABS: BASO # 0.01 K/mm3 (0.0-2.0); BASO % 0.1 % (0.0-3.0); EOS # 0.1 (0.0-0.7); EOS % 0.8 % (1.5-5.0); GRAN # 8.19 (1.4-6.5); GRAN % 78.4 % (50.0-68.0); HEMATOCRIT 44.4 % (42.0-52.0); LYMPH # 1.3 (1.2-3.4); LYMPH % 12.2 % (22.0-35.0); MEAN CELL VOLUME 91.2 fl (80.0-105.0); MEAN CORPUSCULAR HEMOGLOBIN 30.6 pg (25.0-35.0); MEAN CORPUSCULAR HGB CONC 33.6 g/dl (31.0-37.0); MEAN PLATELET VOLUME 10.3 fl (7.0-11.0); MONO # 0.9 (0.1-0.6); MONO % 8.5 % (1.0-6.0); RED CELL DISTRIBUTION WIDTH 14.3 % (11.5-14.5); WHITE BLOOD COUNT 10.4 10^3/ul (4.5-11.0)
[2016-11-14 16:02] LABS: ALB/GLOB RATIO 1.1 (1.1-1.8); ALKALINE PHOSPHATASE 48 U/L (38-126); ALT/SGPT 62 U/L (7-56); AST/SGOT 79 U/L (17-59); BILIRUBIN,TOTAL 0.9 mg/dL (0.2-1.3); BLOOD UREA NITROGEN 18 mg/dL (7-21); CALCIUM 7.9 mg/dL (8.4-10.5); CARBON DIOXIDE 29 mmol/L (21-33); CHLORIDE 99 mmol/L (98-107); GFR AFRICAN-AMERICAN > 60; GLUCOSE,RANDOM 279 mg/dL (70-110); POTASSIUM 4.6 mmol/L (3.6-5.0); SODIUM 134 mmol/L (132-148); TOTAL PROTEIN 5.7 g/dL (5.8-8.3)
[2016-11-14] MEDS: Sodium Chloride 0.9% 1,000 ML IV SCH (17:12)
--- NOTE | 2016-11-14 19:07 | PN ---
DATE: SUBJECTIVE: The patient is 86 years old, seen and examined, who initially was admitted with right upper quadrant pain and was found to have cholelithiasis. Has HIDA scan done and it was not visualized. Surgical intervention was indicated. The patient was taken to OR and had laparoscopic cholecystectomy done. PHYSICAL EXAMINATION: GENERAL: He is awake and alert and communicative. VITAL SIGNS: He is afebrile, pulse 71, respirations 20 and blood pressure 120/55. LUNGS: Bilateral good airflow. No rhonchi or crackle. HEART: S1 and S2 audible. ABDOMEN: Soft. Some soreness at surgical site, in the umbilical and lower abdominal area. EXTREMITIES: Bilateral leg, no edema. LABORATORY DATA: WBC is 10.4, hemoglobin 14.9, hematocrit 44 and platelet of 104. Chemistry: Sodium 134, potassium 4.6, chloride 99, CO2 29, BUN 18, creatinine 1.0, blood sugar of 279, AST 79 and ALT 62. ASSESSMENT: 1. Acute cholecystitis. 2. Cholelithiasis. 3. Coronary artery disease, status post open heart surgery. 4. Hypertension. 5. Hyperlipidemia. 6. Insulin-dependent diabetes. PLAN: Currently, the patient is on IV fluids. He has been started on clear liquid. We will keep him on DVT prophylaxis. I will start him on incentive spirometry and encourage ambulation. Request for physical therapy evaluation in a.m. If the patient continues to do well, we will make discharge plan in a day or 2. Harriet Arellano MD
[2016-11-14] MEDS: HYDROmorphone 1 mg/ml ISec IVP PRN (21:50)
[2016-11-14] MEDS: Insulin Detemir 100 units/ml Vial (Levemir) SC SCH (21:52)
[2016-11-15] MEDS: Sodium Chloride 0.9% 1,000 ML IV SCH ×2 (06:01→21:39)
[2016-11-15] MEDS: Pantoprazole 40 mg EC Tab PO SCH (06:01)
[2016-11-15 07:10] LABS: BASO # 0.01 K/mm3 (0.0-2.0); BASO % 0.1 % (0.0-3.0); EOS % 0.2 % (1.5-5.0); GRAN # 10.08 (1.4-6.5); HEMATOCRIT 44.8 % (42.0-52.0); LYMPH # 1.1 (1.2-3.4); LYMPH % 9.1 % (22.0-35.0); MEAN CELL VOLUME 92.2 fl (80.0-105.0); MEAN CORPUSCULAR HEMOGLOBIN 30.2 pg (25.0-35.0); MEAN CORPUSCULAR HGB CONC 32.8 g/dl (31.0-37.0); MEAN PLATELET VOLUME 10.7 fl (7.0-11.0); MONO # 0.9 (0.1-0.6); MONO % 7.6 % (1.0-6.0); RED CELL DISTRIBUTION WIDTH 14.9 % (11.5-14.5); WHITE BLOOD COUNT 12.1 10^3/ul (4.5-11.0)
[2016-11-15 07:30] LABS: BILIRUBIN,TOTAL 1.1 mg/dL (0.2-1.3); CALCIUM 8.1 mg/dL (8.4-10.5); POTASSIUM 4.8 mmol/L (3.6-5.0)
[2016-11-15] MEDS: Insulin Reg-LOW-Coverage SC SCH ×3 (08:02→17:06)
--- NOTE | 2016-11-15 10:24 | CP.PCM.PN ---
Subjective - Date & Time of Evaluation Date of Evaluation: 11/15/16 Time of Evaluation: 10:00 - Subjective Subjective: General Surgery Progress Note for Dr. Ricks Patient seen and examined this morning. No acute event overnight. Patient is sitting in chair at bedside. He is s/p laparoscopic cholecystectomy POD #1. Patient denies any pain. He is tolerating full liquid diet. Patient has no complaints at this time. Objective - Vital Signs/Intake and Output Vital Signs (last 24 hours): Temp Pulse Resp BP Pulse Ox 98.6 F 83 20 133/67 92 L 11/15/16 08:00 11/15/16 08:00 11/15/16 08:00 11/15/16 08:00 11/15/16 08:00 Intake and Output: 11/15/16 11/15/16 06:59 18:59 Intake Total 2280 Output Total 250 Balance 2030 - Medications Medications: Current Medications Acetaminophen (Tylenol 325mg Tab) 650 mg PO Q4H PRN PRN Reason: Fever >100.5 F Aspirin (Aspirin Chewable) 81 mg PO DAILY [facility] Last Admin: 11/14/16 13:20 Dose: Not Given Atorvastatin Calcium (Lipitor) 20 mg PO DIN [facility] Last Admin: 11/14/16 17:13 Dose: 20 mg Hydromorphone HCl (Dilaudid) 1 mg IVP Q4H PRN PRN Reason: Pain, severe (8-10) Last Admin: 11/14/16 21:50 Dose: 1 mg Sodium Chloride (Sodium Chloride 0.9%) 1,000 mls @ 80 mls/hr IV .[id number] [facility] Last Admin: 11/15/16 06:01 Dose: 80 mls/hr Insulin Detemir (Levemir) 10 unit SC HS [facility] Last Admin: 11/14/16 21:52 Dose: 10 unit Insulin Human Regular (Humulin R Low) 0 units SC ACHS [facility] PRN Reason: Protocol Last Admin: 11/15/16 08:02 Dose: 2 units Losartan Potassium (Cozaar) 50 mg PO DAILY [facility] Last Admin: 11/14/16 13:20 Dose: Not Given Metoprolol Succinate (Toprol Xl) 50 mg PO DAILY [facility] Last Admin: 11/14/16 14:39 Dose: Not Given Pantoprazole Sodium (Protonix Ec Tab) 40 mg PO Q12H [facility] Last Admin: 11/15/16 06:01 Dose: 40 mg Zolpidem Tartrate (Ambien) 5 mg PO HS PRN; Protocol PRN Reason: Insomnia - Labs Labs: 11/15/16 06:30 11/15/16 06:30 PT 10.5 Seconds (9.9-11.8) 11/14/16 06:30 INR 0.97 (0.93-1.08) 11/14/16 06:30 APTT 23.1 Seconds (23.7-30.8) L 11/14/16 06:30 - Constitutional Appears: No Acute Distress - Head Exam Head Exam: ATRAUMATIC, NORMOCEPHALIC - Eye Exam Eye Exam: Normal appearance - ENT Exam ENT Exam: Mucous Membranes Moist - Respiratory Exam Respiratory Exam: NORMAL BREATHING PATTERN - Cardiovascular Exam Cardiovascular Exam: REGULAR RHYTHM - GI/Abdominal Exam GI & Abdominal Exam: Soft. absent: Distended, Firm, Guarding, Rigid, Tenderness , Rebound Additional comments: incision sites clean, dry and intact - Extremities Exam Extremities Exam: absent: Calf Tenderness - Back Exam Back Exam: absent: CVA tenderness (L), CVA tenderness (R) - Neurological Exam Neurological Exam: Alert, Awake, Oriented x3 - Psychiatric Exam Psychiatric exam: Normal Affect, Normal Mood - Skin Skin Exam: Dry, Intact, Normal Color, Warm Assessment and Plan - Assessment and Plan (Free Text) Plan: 86 M s/p laparoscopic cholecystectomy POD #1 -FLD, Will ADAT -OOB, ambulation and Incentive spirometry -Analgesics PRN -Medical management as per primary -NASIMA [facility] PGY1
[2016-11-15] MEDS: Metoprolol Succinate 50 mg XL Tab PO SCH (10:58)
--- NOTE | 2016-11-15 12:35 | CP.PCM.PN ---
<Maggie Billy - Last Filed: 11/15/16 12:35> Subjective - Date & Time of Evaluation Date of Evaluation: 11/15/16 Time of Evaluation: 09:45 - Subjective Subjective: Seen and examined at the bedside earlier today, chart reviewed. status post lap cholecystectomy, postop day #1. Patient was out of bed in the chair, denies nausea, vomiting, or abdominal pain. No reports of BM, passing gas. Had clear liquid this am. No fever or chills. Objective - Vital Signs/Intake and Output Vital Signs (last 24 hours): Temp Pulse Resp BP Pulse Ox 98.6 F 83 20 133/76 92 L 11/15/16 08:00 11/15/16 10:58 11/15/16 08:00 11/15/16 10:58 11/15/16 08:00 Intake and Output: 11/15/16 11/15/16 06:59 18:59 Intake Total 2280 Output Total 250 Balance 2030 - Medications Medications: Current Medications Acetaminophen (Tylenol 325mg Tab) 650 mg PO Q4H PRN PRN Reason: Fever >100.5 F Aspirin (Aspirin Chewable) 81 mg PO DAILY [facility] Last Admin: 11/15/16 10:58 Dose: 81 mg Atorvastatin Calcium (Lipitor) 20 mg PO DIN [facility] Last Admin: 11/14/16 17:13 Dose: 20 mg Hydromorphone HCl (Dilaudid) 1 mg IVP Q4H PRN PRN Reason: Pain, severe (8-10) Last Admin: 11/14/16 21:50 Dose: 1 mg Sodium Chloride (Sodium Chloride 0.9%) 1,000 mls @ 80 mls/hr IV .[id number] [facility] Last Admin: 11/15/16 06:01 Dose: 80 mls/hr Insulin Detemir (Levemir) 10 unit SC HS [facility] Last Admin: 11/14/16 21:52 Dose: 10 unit Insulin Human NPH (Humulin N) 30 units SC ACBD [facility] Insulin Human Regular (Humulin R Low) 0 units SC ACHS [facility] PRN Reason: Protocol Last Admin: 11/15/16 11:57 Dose: 5 units Losartan Potassium (Cozaar) 50 mg PO DAILY [facility] Last Admin: 11/15/16 10:58 Dose: 50 mg Metoprolol Succinate (Toprol Xl) 50 mg PO DAILY [facility] Last Admin: 11/15/16 10:58 Dose: 50 mg Zolpidem Tartrate (Ambien) 5 mg PO HS PRN; Protocol PRN Reason: Insomnia - Labs Labs: 11/15/16 06:30 11/15/16 06:30 PT 10.5 Seconds (9.9-11.8) 11/14/16 06:30 INR 0.97 (0.93-1.08) 11/14/16 06:30 APTT 23.1 Seconds (23.7-30.8) L 11/14/16 06:30 - Constitutional Appears: No Acute Distress - Head Exam Head Exam: NORMOCEPHALIC - Eye Exam Eye Exam: Normal appearance. absent: Scleral icterus - ENT Exam ENT Exam: Mucous Membranes Moist - Neck Exam Neck Exam: Normal Inspection - Respiratory Exam Respiratory Exam: NORMAL BREATHING PATTERN. absent: Respiratory Distress - Cardiovascular Exam Cardiovascular Exam: +S1, +S2 - GI/Abdominal Exam GI & Abdominal Exam: Soft, Tenderness (lap sites are dry and intact), Normal Bowel Sounds. absent: Guarding, Rebound - Extremities Exam Extremities Exam: Normal Capillary Refill. absent: Calf Tenderness - Neurological Exam Neurological Exam: Alert, Awake, Oriented x3 Assessment and Plan - Assessment and Plan (Free Text) Assessment: Assessment: S/p Lap Cholecytectomy, Acute Cholecytitis Cholelithiasis Transemintitis ? 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 Simpson. <Deshaun Simpson V - Last Filed: 11/15/16 22:24> Objective - Vital Signs/Intake and Output Vital Signs (last 24 hours): Temp Pulse Resp BP Pulse Ox 97.6 F 77 20 139/69 97 11/15/16 16:00 11/15/16 16:00 11/15/16 16:00 11/15/16 16:00 11/15/16 16:00 Intake and Output: 11/15/16 11/16/16 18:59 06:59 Intake Total 620 480 Balance 620 480 - Medications Medications: Current Medications Acetaminophen (Tylenol 325mg Tab) 650 mg PO Q4H PRN PRN Reason: Fever >100.5 F Aspirin (Aspirin Chewable) 81 mg PO DAILY [facility] Last Admin: 11/15/16 10:58 Dose: 81 mg Atorvastatin Calcium (Lipitor) 20 mg PO DIN [facility] Last Admin: 11/15/16 17:06 Dose: 20 mg Hydromorphone HCl (Dilaudid) 1 mg IVP Q4H PRN PRN Reason: Pain, severe (8-10) Last Admin: 11/15/16 21:36 Dose: 1 mg Sodium Chloride (Sodium Chloride 0.9%) 1,000 mls @ 80 mls/hr IV .[id number] [facility] Last Admin: 11/15/16 21:39 Dose: 80 mls/hr Insulin Detemir (Levemir) 10 unit SC HS [facility] Last Admin: 11/15/16 21:37 Dose: 10 unit Insulin Human NPH (Humulin N) 30 units SC ACBD [facility] Last Admin: 11/15/16 17:07 Dose: 30 units Insulin Human Regular (Humulin R Low) 0 units SC ACHS [facility] PRN Reason: Protocol Last Admin: 11/15/16 17:06 Dose: 3 units Losartan Potassium (Cozaar) 50 mg PO DAILY [facility] Last Admin: 11/15/16 10:58 Dose: 50 mg Metoprolol Succinate (Toprol Xl) 50 mg PO DAILY [facility] Last Admin: 11/15/16 10:58 Dose: 50 mg Zolpidem Tartrate (Ambien) 5 mg PO HS PRN; Protocol PRN Reason: Insomnia - Labs Labs: 11/15/16 06:30 11/15/16 06:30 PT 10.5 Seconds (9.9-11.8) 11/14/16 06:30 INR 0.97 (0.93-1.08) 11/14/16 06:30 APTT 23.1 Seconds (23.7-30.8) L 11/14/16 06:30 Attending/Attestation - Attestation I have personally seen and examined this patient.: Yes I have fully participated in the care of the patient.: Yes I have reviewed all pertinent clinical information, including history, physical exam and plan: Yes Notes (Text): This is an addendum to GI progress report dictated by Maggie Billy APN.The patient was seen and examined earlier. Medical records, lab studies, imagings were reviewed. Last 24 hours events reviewed. Agreed with the above treatment plan as outlined in Maggie Billy APN's notes the with the addition of the following on clear liquid diet On examination abdomen soft tenderness at the trocar site Follow-up LFT Follow-up pathology 11/15/16 22:23
--- NOTE | 2016-11-15 12:57 | PN ---
DATE: SUBJECTIVE: The patient is 86 years old, seen and examined, who initially came with abdominal pain. Ultrasound showed cholelithiasis. HIDA scan was nonvisualized. The patient underwent laparoscopic cholecystectomy. Complaint of abdominal discomfort. Feels bloated. Did not have bowel movement. PHYSICAL EXAMINATION: VITAL SIGNS: He is afebrile. Pulse 83, respirations 20, blood pressure 133/76, pulse ox 92% on ambulating. Denies any chest pain, positive shortness of breath. LUNGS: Bilateral fair airflow, diffusely decreased at bases. HEART: S1 and S2, audible. ABDOMEN: Soft, obese, palpable discomfort at laparoscopic surgical site. NEUROLOGIC: He is awake and alert. Communicative. LABORATORY DATA: WBC 12.1, hemoglobin 14.7, hematocrit 44.8, platelet of 124. Chemistry: Sodium 134, potassium 4.8, chloride 100, CO2 27, BUN 25, creatinine 1.8, blood sugar of 259. ASSESSMENT: 1. Status post laparoscopic cholecystectomy. 2. Mild renal insufficiency. 3. Abdominal liver function tests. 4. Morbid obesity. 5. Insulin-dependent diabetes. PLAN: I will discontinue PPI. Continue him on his other medication. Continue IV fluids. His diet will be advanced as per surgical team. We will follow up with CMP in a.m. and his blood sugar seems to be running high, adjust his insulin. We will follow up LFTs, CBC in a.m. and encourage ambulation. If the patient remains stable, his renal function improved, he will be discharged in a.m. Harriet Arellano MD
[2016-11-15] MEDS: Insulin Human NPH 1 UNITS/0.01 ML SC SCH (17:07)
[2016-11-15] MEDS: HYDROmorphone 1 mg/ml ISec IVP PRN (21:36)
[2016-11-15] MEDS: Insulin Detemir 100 units/ml Vial (Levemir) SC SCH (21:37)
[2016-11-16 07:12] LABS: BASO # 0.01 K/mm3 (0.0-2.0); BASO % 0.2 % (0.0-3.0); EOS # 0.2 (0.0-0.7); EOS % 2.9 % (1.5-5.0); GRAN # 4.98 (1.4-6.5); HEMATOCRIT 43.3 % (42.0-52.0); LYMPH # 0.7 (1.2-3.4); LYMPH % 10.8 % (22.0-35.0); MEAN CELL VOLUME 91.7 fl (80.0-105.0); MEAN CORPUSCULAR HEMOGLOBIN 29.9 pg (25.0-35.0); MEAN CORPUSCULAR HGB CONC 32.6 g/dl (31.0-37.0); MEAN PLATELET VOLUME 10.7 fl (7.0-11.0); MONO # 0.7 (0.1-0.6); MONO % 10.1 % (1.0-6.0); RED CELL DISTRIBUTION WIDTH 14.7 % (11.5-14.5); WHITE BLOOD COUNT 6.6 10^3/ul (4.5-11.0)
[2016-11-16 08:33] VITALS: BP 160/74; PULSE 73; TEMP 97.4; O2SAT 96
[2016-11-16] MEDS ORDERED: Oxycodone/Acetaminophen 5/325 mg Tab PO PRN (08:38)
[2016-11-16] MEDS ORDERED: Insulin Detemir 100 units/ml Vial (Levemir) SC SCH (08:39)
--- NOTE | 2016-11-16 09:15 | CP.PCM.PN ---
Subjective - Date & Time of Evaluation Date of Evaluation: 11/16/16 Time of Evaluation: 09:14 - Subjective Subjective: Surgery Pt s&e. NAEON. Denies F/C/N/D/CP/SOB. Pain controlled. + amb w help. Objective - Vital Signs/Intake and Output Vital Signs (last 24 hours): Temp Pulse Resp BP Pulse Ox 97.4 F L 73 20 160/74 H 96 11/16/16 08:00 11/16/16 08:00 11/16/16 08:00 11/16/16 08:00 11/16/16 08:00 Intake and Output: 11/16/16 11/16/16 06:59 18:59 Intake Total 2640 Output Total 450 Balance 2190 - Medications Medications: Current Medications Acetaminophen (Tylenol 325mg Tab) 650 mg PO Q4H PRN PRN Reason: Fever >100.5 F Aspirin (Aspirin Chewable) 81 mg PO DAILY [facility] Last Admin: 11/15/16 10:58 Dose: 81 mg Atorvastatin Calcium (Lipitor) 20 mg PO DIN [facility] Last Admin: 11/15/16 17:06 Dose: 20 mg Docusate Sodium (Colace) 100 mg PO DAILY [facility] Hydromorphone HCl (Dilaudid) 1 mg IVP Q4H PRN PRN Reason: Pain, severe (8-10) Last Admin: 11/15/16 21:36 Dose: 1 mg Sodium Chloride (Sodium Chloride 0.9%) 1,000 mls @ 80 mls/hr IV .[id number] [facility] Last Admin: 11/15/16 21:39 Dose: 80 mls/hr Insulin Detemir (Levemir) 20 unit SC HS [facility] Insulin Human NPH (Humulin N) 30 units SC ACBD [facility] Last Admin: 11/15/16 17:07 Dose: 30 units Insulin Human Regular (Humulin R Low) 0 units SC ACHS [facility] PRN Reason: Protocol Last Admin: 11/15/16 17:06 Dose: 3 units Losartan Potassium (Cozaar) 50 mg PO DAILY [facility] Last Admin: 11/15/16 10:58 Dose: 50 mg Metoprolol Succinate (Toprol Xl) 50 mg PO DAILY [facility] Last Admin: 11/15/16 10:58 Dose: 50 mg Oxycodone/Acetaminophen (Percocet 5/325 Mg Tab) 2 tab PO Q4H PRN PRN Reason: Pain, moderate (4-7) Stop: 11/19/16 08:39 Zolpidem Tartrate (Ambien) 5 mg PO HS PRN; Protocol PRN Reason: Insomnia - Labs Labs: 11/16/16 06:50 11/15/16 06:30 PT 10.5 Seconds (9.9-11.8) 11/14/16 06:30 INR 0.97 (0.93-1.08) 11/14/16 06:30 APTT 23.1 Seconds (23.7-30.8) L 11/14/16 06:30 - Constitutional Appears: No Acute Distress - Head Exam Head Exam: ATRAUMATIC, NORMAL INSPECTION, NORMOCEPHALIC - Eye Exam Eye Exam: EOMI, Normal appearance, PERRL Pupil Exam: NORMAL ACCOMODATION, PERRL - ENT Exam ENT Exam: Mucous Membranes Moist, Normal Exam - Neck Exam Neck Exam: Full ROM, Normal Inspection. absent: Lymphadenopathy - Respiratory Exam Respiratory Exam: Clear to Ausculation Bilateral, NORMAL BREATHING PATTERN - Cardiovascular Exam Cardiovascular Exam: REGULAR RHYTHM, +S1, +S2. absent: Murmur - GI/Abdominal Exam GI & Abdominal Exam: Soft, Normal Bowel Sounds. absent: Firm, Guarding, Rigid, Tenderness Additional comments: Incision C/D/I - Extremities Exam Extremities Exam: Full ROM, Normal Capillary Refill, Normal Inspection. absent : Joint Swelling, Pedal Edema - Back Exam Back Exam: NORMAL INSPECTION - Neurological Exam Neurological Exam: Alert, Awake, CN II-XII Intact, Normal Gait, Oriented x3 - Psychiatric Exam Psychiatric exam: Normal Affect, Normal Mood - Skin Skin Exam: Dry, Intact, Normal Color, Warm Assessment and Plan - Assessment and Plan (Free Text) Assessment: POD 2 s/p lap tatyana -OK to DC for surgical standpoint -Medical management -Follow up with Dr. Ricks in 1-2 weeks -Keep dermabond on until fall off naturally. -Ok to take shower Will DW Dr. Ricks
[2016-11-16 09:35] LABS: ALKALINE PHOSPHATASE 48 U/L (38-126); ALT/SGPT 62 U/L (7-56); AST/SGOT 40 U/L (17-59); BILIRUBIN,TOTAL 0.9 mg/dL (0.2-1.3); BLOOD UREA NITROGEN 23 mg/dL (7-21); CALCIUM 7.8 mg/dL (8.4-10.5); CARBON DIOXIDE 28 mmol/L (21-33); CHLORIDE 97 mmol/L (95-110); GFR AFRICAN-AMERICAN > 60; GLUCOSE,RANDOM 263 mg/dL (70-110); POTASSIUM 4.5 mmol/L (3.6-5.0); SODIUM 136 mmol/L (132-148); TOTAL PROTEIN 6.2 g/dL (5.8-8.3)
[2016-11-16] MEDS: Metoprolol Succinate 50 mg XL Tab PO SCH (09:44)
[2016-11-16] MEDS: Insulin Human NPH 1 UNITS/0.01 ML SC SCH (09:45)
[2016-11-16] MEDS: Insulin Reg-LOW-Coverage SC SCH ×2 (09:45→12:24)
--- NOTE | 2016-11-16 13:19 | DS ---
HISTORY OF PRESENT ILLNESS: The patient is 86-year-old, seen and examined, who was initially admitted with abdominal pain. He was found to have cholelithiasis. HIDA scan was non-visualized. Surgical consult was done. The patient had laparoscopic cholecystectomy done. Doing well. Eating and tolerating, ambulating. PHYSICAL EXAMINATION: VITAL SIGNS: He is afebrile, pulse 73, respirations 20, and blood pressure 160/74. LUNGS: Bilateral good air flow. No rhonchi or crackle. HEART: S1 and S2 audible. ABDOMEN: Soft, obese, nontender. No rebound. No guarding. NEUROLOGIC: He is awake and alert, able to communicate. LABORATORY DATA: WBC 6.6, hemoglobin 14, hematocrit 43, platelets 55. Chemistry: Sodium 136, potassium 4.5, chloride 97, CO2 of 28, BUN 23, creatinine 1. Blood sugar of 263. ASSESSMENT: 1. Status post cholecystectomy. 2. Hypertension. 3. Hyperlipidemia. 4. Bak-[id number] diabetes. PLAN: Upon discharge, he will resume his medications that include zolpidem, aspirin, Tradjenta, insulin, metoprolol, glipizide, losartan, and atorvastatin. I will give him Ultracet as needed for pain. Harriet Arellano MD
--- NOTE | 2016-11-16 13:27 | CP.PCM.CON ---
Past Patient History - Infectious Disease Hx of Infectious Diseases: None - Tetanus Immunizations Tetanus Immunization: Unknown - Past Social History Smoking Status: Former Smoker - CARDIAC Hx Cardiac Disorders: Yes (CAD, CABG 2007) Hx Hypertension: Yes - PULMONARY Hx Chronic Obstructive Pulmonary Disease (COPD): Yes - NEUROLOGICAL Hx Neurological Disorder: No Hx Alzheimer's Disease: No - HEENT Hx HEENT Problems: No - RENAL Hx Chronic Kidney Disease: No - ENDOCRINE/METABOLIC Hx Diabetes Mellitus Type 2: Yes - HEMATOLOGICAL/ONCOLOGICAL Hx Blood Transfusions: No Hx Blood Transfusion Reaction: No - INTEGUMENTARY Hx Dermatological Problems: No - MUSCULOSKELETAL/RHEUMATOLOGICAL Hx Falls: Yes Hx Fractures: No - GASTROINTESTINAL Hx Gastrointestinal Disorders: No - GENITOURINARY/GYNECOLOGICAL Hx Genitourinary Disorders: No - PSYCHIATRIC Hx Depression: No Hx Emotional Abuse: No Hx Physical Abuse: No Hx Substance Use: No - SURGICAL HISTORY Hx Surgeries: Yes - ANESTHESIA Hx Anesthesia Reactions: No Hx Malignant Hyperthermia: No Meds Allergies/Adverse Reactions: Allergies Allergy/AdvReac Type Severity Reaction Status Date / Time No Known Allergies Allergy Verified 11/11/16 01:48 - Medications Medications: Current Medications Acetaminophen (Tylenol 325mg Tab) 650 mg PO Q4H PRN PRN Reason: Fever >100.5 F Aspirin (Aspirin Chewable) 81 mg PO DAILY [facility] Last Admin: 11/16/16 09:44 Dose: 81 mg Atorvastatin Calcium (Lipitor) 20 mg PO DIN [facility] Last Admin: 11/15/16 17:06 Dose: 20 mg Docusate Sodium (Colace) 100 mg PO DAILY [facility] Last Admin: 11/16/16 09:44 Dose: 100 mg Hydromorphone HCl (Dilaudid) 1 mg IVP Q4H PRN PRN Reason: Pain, severe (8-10) Last Admin: 11/15/16 21:36 Dose: 1 mg Sodium Chloride (Sodium Chloride 0.9%) 1,000 mls @ 80 mls/hr IV .[id number] [facility] Last Admin: 11/15/16 21:39 Dose: 80 mls/hr Insulin Detemir (Levemir) 20 unit SC HS [facility] Insulin Human NPH (Humulin N) 30 units SC ACBD [facility] Last Admin: 11/16/16 09:45 Dose: 30 units Insulin Human Regular (Humulin R Low) 0 units SC ACHS [facility] PRN Reason: Protocol Last Admin: 11/16/16 12:24 Dose: 3 units Losartan Potassium (Cozaar) 50 mg PO DAILY [facility] Last Admin: 11/16/16 09:44 Dose: 50 mg Metoprolol Succinate (Toprol Xl) 50 mg PO DAILY [facility] Last Admin: 11/16/16 09:44 Dose: 50 mg Oxycodone/Acetaminophen (Percocet 5/325 Mg Tab) 2 tab PO Q4H PRN PRN Reason: Pain, moderate (4-7) Stop: 11/19/16 08:39 Zolpidem Tartrate (Ambien) 5 mg PO HS PRN; Protocol PRN Reason: Insomnia Results - Vital Signs Recent Vital Signs: Last Vital Signs Temp 97.4 F L 11/16/16 08:00 Pulse 73 11/16/16 08:00 Resp 20 11/16/16 08:00 BP 160/74 H 11/16/16 09:44 Pulse Ox 96 11/16/16 08:00 - Labs Result Diagrams: 11/16/16 06:50 11/16/16 09:10 Labs: Laboratory Results - last 24 hr 11/15/16 11/15/16 11/16/16 16:20 21:16 06:50 WBC 6.6 D RBC 4.72 Hgb 14.1 Hct 43.3 MCV 91.7 MCH 29.9 MCHC 32.6 RDW 14.7 H Plt Count 55 L MPV 10.7 Gran % 76.0 H Lymph % (Auto) 10.8 L [place] % (Auto) 10.1 H Eos % (Auto) 2.9 Baso % (Auto) 0.2 Gran # 4.98 Lymph # 0.7 L [place] # 0.7 H Eos # 0.2 Baso # 0.01 Sodium Potassium Chloride Carbon Dioxide Anion Gap BUN Creatinine Est GFR ( Amer) Est GFR (Non-Af Amer) POC Glucose (mg/dL) 283 H 243 H Random Glucose Calcium Total Bilirubin AST ALT Alkaline Phosphatase Total Protein Albumin Globulin Albumin/Globulin Ratio 11/16/16 11/16/16 07:31 09:10 WBC RBC Hgb Hct MCV MCH MCHC RDW Plt Count MPV Gran % Lymph % (Auto) [place] % (Auto) Eos % (Auto) Baso % (Auto) Gran # Lymph # [place] # Eos # Baso # Sodium 136 Potassium 4.5 Chloride 97 Carbon Dioxide 28 Anion Gap 16 BUN 23 H Creatinine 1.0 Est GFR ( Amer) > 60 Est GFR (Non-Af Amer) > 60 POC Glucose (mg/dL) 242 H Random Glucose 263 H Calcium 7.8 L Total Bilirubin 0.9 AST 40 ALT 62 H Alkaline Phosphatase 48 Total Protein 6.2 Albumin 3.1 Globulin 3.1 Albumin/Globulin Ratio 1.0 L
[2016-11-16 13:28] LABS: BASO # 0.02 K/mm3 (0.0-2.0); BASO % 0.3 % (0.0-3.0); EOS # 0.2 (0.0-0.7); EOS % 2.2 % (1.5-5.0); GRAN # 5.74 (1.4-6.5); GRAN % 78.8 % (50.0-68.0); HEMATOCRIT 43.5 % (42.0-52.0); LYMPH # 0.7 (1.2-3.4); LYMPH % 8.9 % (22.0-35.0); MEAN CELL VOLUME 91.8 fl (80.0-105.0); MEAN CORPUSCULAR HEMOGLOBIN 29.7 pg (25.0-35.0); MEAN CORPUSCULAR HGB CONC 32.4 g/dl (31.0-37.0); MEAN PLATELET VOLUME 10.8 fl (7.0-11.0); MONO # 0.7 (0.1-0.6); MONO % 9.8 % (1.0-6.0); RED CELL DISTRIBUTION WIDTH 14.6 % (11.5-14.5); WHITE BLOOD COUNT 7.3 10^3/ul (4.5-11.0)
--- NOTE | 2016-11-16 14:11 | PN ---
DATE: 11/16/2016 CARDIOLOGY FOLLOWUP SUBJECTIVE: The patient is ambulating on the floor without shortness of breath, without chest pain. OBJECTIVE: VITAL SIGNS: Blood pressure 160/74, heart rate in the 70s. NECK: Negative JVD. LUNGS: Without rales. HEART: S1, S2. EXTREMITIES: Without edema. LABORATORY DATA: Hemoglobin is 14.1. Chemistries, glucose is 263. IMPRESSION: 1. Status post cholecystectomy. 2. Stable angina. 3. Diabetes mellitus. 4. Hypertension. 5. Hypercholesterolemia. PLAN: Given these findings, the patient is doing well. From a cardiac perspective, the patient can be discharged. Follow up instructions have been given to the patient in detail. Bridger Moreno MD
== END 2016-11-16 16:34 | disposition home or self-care (01) | DRG 418 ==
LOC: ED 01:41 → ERH 04:04 → 5RSO 04:41
PROVIDERS: ADMIT Internal Medicine Medical Oncology; ATTEND Internal Medicine
PROC: 0FT44ZZ Resection of Gallbladder, Percutaneous Endoscopic Approach (ICD-10-PCS; principal; 2016-11-14 07:30)
DX: K80.00 Calculus of gallbladder with acute cholecystitis without obstruction (principal); I42.0 Dilated cardiomyopathy; J44.9 Chronic obstructive pulmonary disease, unspecified; E11.43 Type 2 diabetes mellitus with diabetic autonomic (poly)neuropathy; K31.84 Gastroparesis; I25.5 Ischemic cardiomyopathy; I25.118 Atherosclerotic heart disease of native coronary artery with other forms of angina pectoris; E78.00 Pure hypercholesterolemia, unspecified; I10 Essential (primary) hypertension; E66.01 Morbid (severe) obesity due to excess calories; Z68.34 Body mass index [BMI] 34.0-34.9, adult; Z79.4 Long term (current) use of insulin; Z79.82 Long term (current) use of aspirin; Z79.899 Other long term (current) drug therapy; Z95.1 Presence of aortocoronary bypass graft; Z86.010 Personal history of colon polyps; Z87.891 Personal history of nicotine dependence

== ENCOUNTER 2017-05-01 07:46 | Emergency (ER) | payer BC, MEDICARE ==
[2017-05-01 07:46] VITALS: BMI 32.5
--- NOTE | 2017-05-01 08:20 | ED PDOC ---
Arrival/HPI - General Historian: Patient, Family - History of Present Illness Time/Duration: Prior to Arrival, 1/2 hour Symptom Onset: Sudden Symptom Course: Improving Quality: Pressure Activities at Onset: Rest - General Chief Complaint: ENT Problem - History of Present Illness Narrative History of Present Illness (Text): 05/01/17 08:18 87M presents to [facility] w/ Right sided nosebleed that started after blowing his nose this AM. Patient states he works outside and his room is very dry. Uses saline to flush his nose at night. Has a history of nosebleeds in the past. Started bleeding at 0730 and decided to come in. Takes Aspirin 325 at home. No other blood thinners. Denies: loss of consciousness, headaches, sudden change in vision (Paco Shi) Past Medical History - Provider Review Nursing Documentation Reviewed: Yes - Travel History Have you recently traveled outside [place] w/in the past 3 mons?: No - Infectious Disease Hx of Infectious Diseases: None - Tetanus Immunization Tetanus Immunization: Unknown - Cardiac Hx Cardiac Disorders: Yes Hx AK: Yes Hx Hypertension: Yes - Pulmonary Hx Respiratory Disorders: Yes Hx Chronic Obstructive Pulmonary Disease (COPD): Yes - Neurological Hx Neurological Disorder: No Hx Alzheimer's Disease: No - HEENT Hx HEENT Disorder: Yes Hx Epistaxis: Yes - Renal Hx Renal Disorder: No - Endocrine/Metabolic Hx Endocrine Disorders: Yes Hx Diabetes Mellitus Type 2: Yes - Hematological/Oncological Hx Blood Disorders: No - Integumentary Hx Dermatological Disorder: No - Musculoskeletal/Rheumatological Hx Musculoskeletal Disorders: Yes Hx Falls: Yes Hx Fractures: No - Gastrointestinal Hx Gastrointestinal Disorders: No - Genitourinary/Gynecological Hx Genitourinary Disorders: No - Psychiatric Hx Psychophysiologic Disorder: No Hx Depression: No Hx Emotional Abuse: No Hx Physical Abuse: No Hx Substance Use: No - Surgical History Hx Cardiac Catheterization: Yes Hx Cholecystectomy: Yes Hx Coronary Artery Bypass Graft: Yes Hx Coronary Stent: Yes - Anesthesia Hx Anesthesia Reactions: No Hx Malignant Hyperthermia: No - Suicidal Assessment Feels Threatened In Home Enviroment: No Family/Social History - Physician Review Nursing Documentation Reviewed: Yes Family/Social History: Other (non-contributory) Smoking Status: Former Smoker Hx Alcohol Use: No Hx Substance Use: No Hx Substance Use Treatment: No Allergies/Home Meds Allergies/Adverse Reactions: Allergies No Known Allergies Allergy (Verified 05/01/17 08:07) Home Medications: Home Meds Medication Instructions Recorded Confirmed Aspirin [Aspir 81] 325 mg PO DAILY 05/01/12 05/01/17 Atorvastatin Calcium 20 mg PO DAILY 05/01/12 05/01/17 Glipizide 10 mg PO DAILY 05/01/12 05/01/17 Linagliptin [Tradjenta] 5 mg PO DAILY 05/01/12 05/01/17 Metoprolol Succinate 50 mg PO BID 05/01/12 05/01/17 Insulin Human Isophane (NPH) 30 units SC ACB 06/07/14 05/01/17 [Novolin N] Losartan [Cozaar] 25 mg PO DAILY 10/21/15 05/01/17 Review of Systems - Physician Review All systems were reviewed & negative as marked: Yes - Review of Systems Constitutional: absent: Fatigue, Fevers, Night Sweats Eyes: absent: Vision Changes, Photophobia, Eye Pain ENT: Epistaxis (Right nostril). absent: Hearing Changes, Tinnitus, TMJ Pain Respiratory: absent: SOB, Cough, Sputum Cardiovascular: absent: Chest Pain, Palpitations, Edema, Calf Pain Gastrointestinal: absent: Abdominal Pain, Stool Changes, Diarrhea, Nausea, Vomiting Musculoskeletal: absent: Arthralgias, Back Pain Skin: absent: Rash, Pruritis Neurological: absent: Headache, Dizziness Endocrine: absent: Diaphoresis Physical Exam Vital Signs Reviewed: Yes Temperature: Afebrile Blood Pressure: Hypertensive (did not take BP meds this AM) Pulse: Regular Respiratory Rate: Normal Appearance: Positive for: Well-Appearing, Non-Toxic, Comfortable Pain Distress: None Mental Status: Positive for: Alert and Oriented X 3 - Systems Exam Head: Present: Atraumatic, Normocephalic. No: Abrasion Pupils: Present: PERRL Extroacular Muscles: Present: EOMI Conjunctiva: Present: Normal Mouth: Present: Moist Mucous Membranes Nose (External): Present: Atraumatic. No: Abrasion, Laceration Nose (Internal): Present: Epistaxis (actively oozing bright red blood from right nostril). No: No Active Bleeding, Rhinorrhea Neck: Present: Normal Range of Motion Respiratory/Chest: Present: Clear to Auscultation, Good Air Exchange. No: Respiratory Distress, Accessory Muscle Use Cardiovascular: Present: Regular Rate and Rhythm, Normal S1, S2. No: Murmurs Abdomen: No: Tenderness, Peritoneal Signs Upper Extremity: Present: NORMAL PULSES. No: Cyanosis, Edema Lower Extremity: No: Edema, CALF TENDERNESS Neurological: Present: GCS=15, Speech Normal Skin: Present: Warm, Dry Psychiatric: Present: Alert, Oriented x 3 Vital Signs Pulse Resp BP Pulse Ox 05/01/17 09:31 74 18 146/72 95 05/01/17 08:08 72 19 169/95 H 95 Medical Decision Making Re-evaluation Time: 09:10 (Bleeding has stopped for >20min. Bactracin applied, no signs of active bleeding) ED Course and Treatment: 05/01/17 08:23 Hold direct pressure for 10 minutes oxymetazoline 2 sprays reassess and re-evaluate Take AM BP meds (Paco Shi) Patient Seen With Resident: In agreement with resident note which contains more details about the patient. Patient was seen and evaluated with resident. Came up with plan and treatment together. ([place]) - Medication Orders Current Medication Orders: Discontinued Medications Oxymetazoline HCl (Afrin 0.05%) 0 ml NS STAT STA Stop: 05/01/17 08:27 Disposition/Present on Arrival - Present on Arrival Any Indicators Present on Arrival: No History of DVT/PE: No History of Uncontrolled Diabetes: Yes Urinary Catheter: No History of Decub. Ulcer: No History Surgical Site Infection Following: CABG - Mediastinitis - Disposition Have Diagnosis and Disposition been Completed?: Yes Disposition Time: 09:28 Patient Plan: Discharge - Disposition Diagnosis: Epistaxis, recurrent Disposition: HOME/ ROUTINE Condition: GOOD Discharge Instructions (ExitCare): Nosebleeds (DC) Print Language: FRISIAN Additional Instructions: Thank you for letting us take care of you today. You were treated for Nosebleed. The emergency medical care you received today was directed at your acute symptoms. If you were prescribed any medication, please fill it and take as directed. It may take several days for your symptoms to resolve. Return to the Emergency Department if your symptoms worsen, do not improve, or if you have any other problems. Direct pressure used followed by bactracin ointment to keep the area moist. Recommend if nosebleeds were to happen again, apply direct pressure for at least 5-10minutes. If bleeding persists, and notice bright red blood go to the ED. Please contact your doctor or call one of the physicians/clinics you have been referred to that are listed on the Patient Visit Information form that is included in your discharge packet. Bring any paperwork you were given at discharge with you along with any medications you are taking to your follow up visit. Our treatment cannot replace ongoing medical care by a primary care provider (PCP) outside of the emergency department. Thank you for allowing the [facility] team to be part of your care today. Referrals: Adelfo Ding DO [Staff Provider] - Follow up with primary Alex Cartagena MD [Primary Care Provider] - Follow up with primary Forms: [employer] (1[employer]) (Bangladeshi)
[2017-05-01 08:21] VITALS: O2SAT 95
[2017-05-01] MEDS ORDERED: Oxymetazoline 0.05% Nasal Spray (30 ml) NS STA (08:26)
[2017-05-01 09:32] VITALS: BP 146/72; PULSE 74; RESP 18
== END 2017-05-01 10:00 | disposition home or self-care (01) ==
LOC: ED 07:46
DX: R04.0 Epistaxis (principal); I10 Essential (primary) hypertension; E11.9 Type 2 diabetes mellitus without complications

== ENCOUNTER 2017-05-07 08:01 | Emergency (ER) | payer BC, MEDICARE ==
[2017-05-07 08:02] VITALS: BMI 32.5
[2017-05-07 08:15] VITALS: BP 168/72; PULSE 75; RESP 18; TEMP 98.2; O2SAT 95
--- NOTE | 2017-05-07 09:17 | ED PDOC ---
Arrival/HPI - General Chief Complaint: ENT Problem Time Seen by Provider: 05/07/17 08:14 Historian: Patient, Family - History of Present Illness Narrative History of Present Illness (Text): you were treated in the ED today for noted aspirin use, hx of nasal bleeding in cold air and you work outside all day, and came to the ED 05/01/17 for right nasal bleeding, saw your ear nose throat doctor who stated us nasal gel, generic afrin and humidified air but you had a recurrent episode today which has stopped and otherwise without any trauma/injury/nausea/vomiting/headache/ dizziness/difficulty breathing/chest pain/abdomen pain/numbness/tingling/loss of limb function/pain with urination. 05/07/17 09:12 Time/Duration: 24 hours Symptom Onset: Gradual Symptom Course: Resolved Activities at Onset: Rest Context: Sitting Past Medical History - Provider Review Nursing Documentation Reviewed: Yes - Travel History Have you recently traveled outside [place] w/in the past 3 mons?: No - Infectious Disease Hx of Infectious Diseases: None - Tetanus Immunization Tetanus Immunization: Unknown - Cardiac Hx Cardiac Disorders: Yes Hx IN: Yes Hx Hypertension: Yes - Pulmonary Hx Respiratory Disorders: No Hx Chronic Obstructive Pulmonary Disease (COPD): No - Neurological Hx Neurological Disorder: No Hx Alzheimer's Disease: No - HEENT Hx HEENT Disorder: No Hx Epistaxis: No - Renal Hx Renal Disorder: No - Endocrine/Metabolic Hx Endocrine Disorders: No - Hematological/Oncological Hx Blood Disorders: No - Integumentary Hx Dermatological Disorder: No - Musculoskeletal/Rheumatological Hx Musculoskeletal Disorders: No - Gastrointestinal Hx Gastrointestinal Disorders: No - Genitourinary/Gynecological Hx Genitourinary Disorders: No - Psychiatric Hx Psychophysiologic Disorder: No Hx Depression: No Hx Emotional Abuse: No Hx Physical Abuse: No Hx Substance Use: No - Surgical History Hx Cholecystectomy: No - Anesthesia Hx Anesthesia Reactions: No Hx Malignant Hyperthermia: No - Suicidal Assessment Feels Threatened In Home Enviroment: No Family/Social History - Physician Review Nursing Documentation Reviewed: Yes Family/Social History: No Known Family HX Smoking Status: Former Smoker Hx Alcohol Use: No Hx Substance Use: No Hx Substance Use Treatment: No Allergies/Home Meds Allergies/Adverse Reactions: Allergies No Known Allergies Allergy (Verified 05/07/17 08:17) Home Medications: Home Meds Medication Instructions Recorded Confirmed Aspirin [Aspir 81] 325 mg PO DAILY 05/01/12 05/07/17 Atorvastatin Calcium 20 mg PO DAILY 05/01/12 05/07/17 Glipizide 10 mg PO DAILY 05/01/12 05/07/17 Linagliptin [Tradjenta] 5 mg PO DAILY 05/01/12 05/07/17 Metoprolol Succinate 50 mg PO BID 05/01/12 05/07/17 Insulin Human Isophane (NPH) 30 units SC ACB 06/07/14 05/07/17 [Novolin N] Losartan [Cozaar] 25 mg PO DAILY 10/21/15 05/07/17 Review of Systems - Review of Systems Constitutional: Normal Eyes: Normal ENT: Epistaxis Respiratory: Normal Cardiovascular: Normal Gastrointestinal: Normal Genitourinary Male: Normal Musculoskeletal: Normal Skin: Normal Neurological: Normal Endocrine: Normal Hemo/Lymphatic: Normal Psychiatric: Normal Physical Exam Vital Signs Reviewed: Yes Vital Signs Temp Pulse Resp BP Pulse Ox 05/07/17 08:15 98.2 F 75 18 168/72 H 95 Temperature: Afebrile Blood Pressure: Hypertensive Pulse: Regular Respiratory Rate: Normal Appearance: Positive for: Well-Appearing, Non-Toxic, Comfortable Pain Distress: None Mental Status: Positive for: Alert and Oriented X 3 - Systems Exam Head: Present: Atraumatic, Normocephalic Pupils: Present: PERRL Extroacular Muscles: Present: EOMI Conjunctiva: Present: Normal Ears: Present: Normal Mouth: Present: Moist Mucous Membranes Pharnyx: Present: Normal Nose (External): Present: Atraumatic Nose (Internal): Present: No Active Bleeding, Moist, Boggy, Other (mild right nasal blood wo active bleeding and left nasal area wo blood and both are patent.) Neck: Present: Normal Range of Motion Respiratory/Chest: Present: Clear to Auscultation, Good Air Exchange Cardiovascular: Present: Regular Rate and Rhythm Abdomen: No: Tenderness, Distention, Normal Bowel Sounds, Peritoneal Signs, Rebound, Guarding, McBurney's Point Tender, Rovsing's Sign Present, Hernias, Feeding Tubes, Ostomy Tubes, Mass/Organomegaly, Scars, Other Back: Present: Normal Inspection Upper Extremity: Present: Normal Inspection Lower Extremity: Present: Normal Inspection Neurological: Present: GCS=15, CN II-XII Intact, Speech Normal, Motor Func Grossly Intact Skin: Present: Warm, Normal Color Psychiatric: Present: Alert, Oriented x 3, Normal Insight, Normal Concentration Medical Decision Making ED Course and Treatment: 05/07/17 09:17 you were treated in the ED today for noted aspirin use, hx of nasal bleeding in cold air and you work outside all day, and came to the ED 05/01/17 for right nasal bleeding, saw your ear nose throat doctor who stated us nasal gel, generic afrin and humidified air but you had a recurrent episode today which has stopped and otherwise without any trauma/injury/nausea/vomiting/headache/ dizziness/difficulty breathing/chest pain/abdomen pain/numbness/tingling/loss of limb function/pain with urination. You were otherwise breathing easily, smiling and talking with your daughter, good strength/sensation, walking easily , clear lungs, no abdomen tenderness, right nasal passage with mild blood but no active bleeding and left nassal passage without blood and both area open, no fever temp 98.2, stable heart rate 75, stable breathing rate 18, excellent oxygen level 95% room air, elevated blood pressure 168/72 which we recommend repeat in 2-3 days primary care office to determine further treatment, had a long discussion regarding putting in a rhino rocket for bleeding control but you refused and stated too uncomfortable and cautioned for re-bleeding but you preferred nasal gauze packing with afrin spray, observation done in the ED with improvement/no further bleeding, counselled to keep gauze in today and can remove in the evening with shower and gentle water to loosen and thus discharged home with daughter. 1. Recommend continue your treatments as previously prescribed from your ear nose throat doctor 2. Recommend follow-up primary care 1-2 days to review symptoms, discuss your aspirin use, referral to ear nose throat doctor to review symptoms. 3. If any worsening pain, fever, chills, nausea, vomiting, difficulty breathing, numbness, loss of limb function , pain with urination or any medical condition then return to the ED. 05/07/17 09:18 Reassessment Condition: Re-examined, Improved Disposition/Present on Arrival - Present on Arrival Any Indicators Present on Arrival: No History of DVT/PE: No History of Uncontrolled Diabetes: Yes Urinary Catheter: No History of Decub. Ulcer: No History Surgical Site Infection Following: CABG - Mediastinitis, None - Disposition Have Diagnosis and Disposition been Completed?: Yes Diagnosis: Epistaxis Disposition: HOME/ ROUTINE Disposition Time: 09:17 Patient Plan: Discharge Condition: IMPROVED Additional Instructions: you were treated in the ED today for noted aspirin use, hx of nasal bleeding in cold air and you work outside all day, and came to the ED 05/01/17 for right nasal bleeding, saw your ear nose throat doctor who stated us nasal gel, generic afrin and humidified air but you had a recurrent episode today which has stopped and otherwise without any trauma/injury/nausea/vomiting/headache/ dizziness/difficulty breathing/chest pain/abdomen pain/numbness/tingling/loss of limb function/pain with urination. You were otherwise breathing easily, smiling and talking with your daughter, good strength/sensation, walking easily , clear lungs, no abdomen tenderness, right nasal passage with mild blood but no active bleeding and left nassal passage without blood and both area open, no fever temp 98.2, stable heart rate 75, stable breathing rate 18, excellent oxygen level 95% room air, elevated blood pressure 168/72 which we recommend repeat in 2-3 days primary care office to determine further treatment, had a long discussion regarding putting in a rhino rocket for bleeding control but you refused and stated too uncomfortable and cautioned for re-bleeding but you preferred nasal gauze packing with afrin spray, observation done in the ED with improvement/no further bleeding, counselled to keep gauze in today and can remove in the evening with shower and gentle water to loosen and thus discharged home with daughter. 1. Recommend continue your treatments as previously prescribed from your ear nose throat doctor 2. Recommend follow-up primary care 1-2 days to review symptoms, discuss your aspirin use, referral to ear nose throat doctor to review symptoms. 3. If any worsening pain, fever, chills, nausea, vomiting, difficulty breathing, numbness, loss of limb function , pain with urination or any medical condition then return to the ED. Referrals: Ambrocio Melissa, [Primary Care Provider] - Follow up with primary
== END 2017-05-07 09:25 | disposition home or self-care (01) ==
LOC: ED 08:01
DX: R04.0 Epistaxis (principal)

== ENCOUNTER 2017-07-26 15:11 | Inpatient (IN) | payer BC, MEDICARE ==
[2017-07-26 15:21] VITALS: BMI 33.5
[2017-07-26] MEDS ORDERED: Albuterol-Ipratrop 3 mg / 0.5 (3 ml) UD IH STA (15:57)
[2017-07-26 16:43] LABS: BASO # 0.02 K/mm3 (0.0-2.0); BASO % 0.2 % (0.0-3.0); EOS # 0.2 (0.0-0.7); EOS % 2.2 % (1.5-5.0); GRAN # 6.72 (1.4-6.5); GRAN % 74.2 % (50.0-68.0); HEMOGLOBIN 14.9 g/dL (14.0-18.0); LYMPH # 1.4 (1.2-3.4); LYMPH % 14.9 % (22.0-35.0); MEAN CELL VOLUME 93.4 fl (80.0-105.0); MEAN CORPUSCULAR HEMOGLOBIN 29.9 pg (25.0-35.0); MEAN PLATELET VOLUME 10.4 fl (7.0-11.0); MONO # 0.8 (0.1-0.6); MONO % 8.5 % (1.0-6.0); RBC 4.99 10^6/uL (3.5-6.1); RED CELL DISTRIBUTION WIDTH 14.5 % (11.5-14.5); WHITE BLOOD COUNT 9.1 10^3/ul (4.5-11.0)
--- NOTE | 2017-07-26 16:43 | ED PDOC ---
Arrival/HPI - General Chief Complaint: Shortness Of Breath Time Seen by Provider: 07/26/17 15:56 Historian: Patient - History of Present Illness Narrative History of Present Illness (Text): 07/26/17 16:36 87yo male with PMHx of Diabetes, hypertension, COPD, CAD who present with 4weeks history of worsening clear productive cough x 4weeks. He reports SOB, states he have chronic SOB, but it has become worse x5days. The daughter by the bedside states his PMD called in [employer] (formerly [employer] for him. Today is day #3 on [employer]. He has been using his inhaler once daily, instead of 3times a day. He denies fever , chills, LE edema, calf pain, chest pain, dizziness, sick contact, travel, any other complaint. Past Medical History - Provider Review Nursing Documentation Reviewed: Yes - Infectious Disease Hx of Infectious Diseases: None - Tetanus Immunization Tetanus Immunization: Unknown - Cardiac Hx Cardiac Disorders: Yes Hx MD: Yes Hx Hypertension: Yes - Pulmonary Hx Respiratory Disorders: No Hx Chronic Obstructive Pulmonary Disease (COPD): No - Neurological Hx Neurological Disorder: No Hx Alzheimer's Disease: No - HEENT Hx HEENT Disorder: No Hx Epistaxis: No - Renal Hx Renal Disorder: No - Endocrine/Metabolic Hx Endocrine Disorders: No - Hematological/Oncological Hx Blood Disorders: No - Integumentary Hx Dermatological Disorder: No - Musculoskeletal/Rheumatological Hx Musculoskeletal Disorders: No - Gastrointestinal Hx Gastrointestinal Disorders: No - Genitourinary/Gynecological Hx Genitourinary Disorders: No - Psychiatric Hx Psychophysiologic Disorder: No Hx Depression: No Hx Emotional Abuse: No Hx Physical Abuse: No Hx Substance Use: No - Surgical History Hx Cholecystectomy: No Hx Coronary Artery Bypass Graft: Yes - Anesthesia Hx Anesthesia Reactions: No Hx Malignant Hyperthermia: No - Suicidal Assessment Feels Threatened In Home Enviroment: No Family/Social History - Physician Review Nursing Documentation Reviewed: Yes Family/Social History: Unknown Family HX Smoking Status: Former Smoker Hx Alcohol Use: No Hx Substance Use: No Hx Substance Use Treatment: No Allergies/Home Meds Allergies/Adverse Reactions: Allergies No Known Allergies Allergy (Verified 05/07/17 08:17) Home Medications: Home Meds Medication Instructions Recorded Confirmed Aspirin [Aspir 81] 325 mg PO DAILY 05/01/12 07/26/17 Atorvastatin Calcium 20 mg PO HS 05/01/12 07/26/17 Glipizide 20 mg PO DAILY 05/01/12 07/26/17 Linagliptin [Tradjenta] 5 mg PO DAILY 05/01/12 07/26/17 Insulin Human Isophane (NPH) 30 units SC BID 06/07/14 07/26/17 [Novolin N] Losartan [Cozaar] 25 mg PO DAILY 10/21/15 07/26/17 Metoprolol Tartrate [Lopressor] 1 tab PO BID 07/26/17 07/26/17 Review of Systems - Physician Review All systems were reviewed & negative as marked: Yes - Review of Systems Constitutional: Normal Eyes: Normal ENT: Normal Respiratory: SOB, Cough, Sputum. absent: Wheezing Cardiovascular: Normal Gastrointestinal: Normal Genitourinary Male: Normal Musculoskeletal: Normal Skin: Normal Neurological: Normal Endocrine: Normal Hemo/Lymphatic: Normal Psychiatric: Normal Physical Exam Vital Signs Reviewed: Yes Vital Signs Temp Pulse Resp BP Pulse Ox 07/26/17 23:55 82 160/75 H 07/26/17 21:58 98.3 F 84 18 151/79 H 07/26/17 17:51 83 22 148/65 93 L 07/26/17 17:41 148/65 07/26/17 16:33 20 07/26/17 15:23 97.4 F L 83 20 167/93 H 85 L Temperature: Afebrile Blood Pressure: Normal Pulse: Regular Respiratory Rate: Normal Appearance: Positive for: Well-Appearing, Non-Toxic, Comfortable Pain Distress: None Mental Status: Positive for: Alert and Oriented X 3 - Systems Exam Head: Present: Atraumatic, Normocephalic Pupils: Present: PERRL Extroacular Muscles: Present: EOMI Conjunctiva: Present: Normal Mouth: Present: Moist Mucous Membranes Neck: Present: Normal Range of Motion Respiratory/Chest: Present: Good Air Exchange, Decreased Breath Sounds ( Diffusely). No: Respiratory Distress, Accessory Muscle Use, Wheezes, Rales, Retracting, Rhonchi Cardiovascular: Present: Regular Rate and Rhythm, Normal S1, S2. No: Murmurs Abdomen: No: Tenderness, Distention, Peritoneal Signs Back: Present: Normal Inspection Upper Extremity: Present: Normal Inspection. No: Cyanosis, Edema Lower Extremity: Present: Normal Inspection. No: Edema Neurological: Present: GCS=15, CN II-XII Intact, Speech Normal Skin: Present: Warm, Dry, Normal Color. No: Rashes Psychiatric: Present: Alert, Oriented x 3, Normal Insight, Normal Concentration Medical Decision Making ED Course and Treatment: 07/27/17 00:42 Pt presented for stated history. He was mildly hypoxic on RA which could be chronic secondary to his history of COPD. He was however not in any distress. On re evaluation s/p treatment in ED he report improvement, but still report SOB and cough CXR FINDINGS: LUNGS: Stable well-circumscribed mass left upper lobe measuring 1.4 cm. PLEURA: No significant pleural effusion identified, no pneumothorax apparent. CARDIOVASCULAR: Cardiomegaly. No evidence of acute, significant cardiovascular disease. OSSEOUS STRUCTURES: No significant abnormalities. VISUALIZED UPPER ABDOMEN: Normal. OTHER FINDINGS: None. IMPRESSION: No active disease. No significant interval change compared to the prior examination(s). Lab was noted with elevated BNP without leukocytosis. Lasix was ordered EKG LAD; RBBB; LVH with ectopic atrial rhythm @ 82bpm. NSTEMI. PT was admitted secondary to his persistent symptom. He was not on any diuresis at home. He will be admitted for further evaluation and treatment Case was DW Dr. Blanco and she accepted pt for admission. She requested Chest CT , pt's family however declined Chest CT. - Lab Interpretations Lab Results: 07/26/17 16:10 07/26/17 16:10 Lab Results 07/26/17 16:30: Thyroxine (T4) 6.8 07/26/17 16:10: Urine Color Yellow, Urine Appearance Clear, Urine pH 6.0, Ur Specific [place] 1.025, Urine Protein 100 H, Urine Glucose (UA) 500 H, Urine Ketones Negative, Urine Blood Trace-lysed H, Urine Nitrate Negative, Urine Bilirubin Negative, Urine Urobilinogen 0.2, Ur Leukocyte Esterase Negative, Urine RBC 0 - 2, Urine WBC 2 - 5, Ur Epithelial Cells 3 - 4, Urine Bacteria Few 07/26/17 16:10: Sodium 141, Chloride 100, Potassium 5.1 H, Carbon Dioxide 36 H, Anion Gap 10, BUN 23 H, Creatinine 1.0, Est GFR ( Amer) > 60, Est GFR ( Non-Af Amer) > 60, Random Glucose 218 H, Calcium 8.6, Magnesium 2.0, Total Bilirubin 0.4, AST 104 H D, ALT 126 H, Alkaline Phosphatase 107, Lactate Dehydrogenase 686, Total Creatine Kinase 82, Troponin I 0.09 D, NT-Pro-B Natriuret Pep 979 H, Total Protein 7.0, Albumin 3.6, Globulin 3.4, Albumin/ Globulin Ratio 1.0 L 07/26/17 16:10: pO2 53, VBG pH 7.32, VBG pCO2 70.0 H*, VBG HCO3 36.1 H, VBG Total CO2 38.2 H, VBG O2 Sat (Calc) 90.9 H, VBG Base Excess 7.4 H, VBG Potassium 5.5 H, Sodium 138.0, Chloride 102.0, Glucose 228 H, Lactate 1.1, FiO2 21.0, Venous Blood Potassium 5.5 H 07/26/17 16:10: PT 11.1, INR 0.97, APTT 27.3 07/26/17 16:10: WBC 9.1 D, RBC 4.99, Hgb 14.9, Hct 46.6, MCV 93.4, MCH 29.9, MCHC 32.0, RDW 14.5, Plt Count 154, MPV 10.4, Gran % 74.2 H, Lymph % (Auto) 14.9 L, [place] % (Auto) 8.5 H, Eos % (Auto) 2.2, Baso % (Auto) 0.2, Gran # 6.72 H , Lymph # (Auto) 1.4, [place] # (Auto) 0.8 H, Eos # (Auto) 0.2, Baso # (Auto) 0.02 - RAD Interpretation Radiology Orders: 07/26/17 15:59 CHEST PORTABLE [RAD] Stat - Medication Orders Current Medication Orders: Acetaminophen (Tylenol 325mg Tab) 650 mg PO Q6H PRN PRN Reason: Fever >100.4 F Aspirin (Ecotrin) 81 mg PO DAILY KESHAWN Atorvastatin Calcium (Lipitor) 20 mg PO DIN KESHAWN Ceftriaxone Sodium (Rocephin 1 Gram Ivpb) 1 gm in 100 mls @ 100 mls/hr IVPB DAILY KESHAWN PRN Reason: Protocol Azithromycin 500 mg/ Sodium (Chloride) 250 mls @ 250 mls/hr IV DAILY KESHAWN PRN Reason: Protocol Insulin Human Regular (Humulin R Low) 0 units SC ACHS KESHAWN PRN Reason: Protocol Last Admin: 07/26/17 23:57 Dose: 2 units Subcutaneous Administrations Document 07/26/17 23:57 RR (Rec: 07/26/17 23:58 RR [id number] Charges for Administration # of Subcutaneous Administrations 1 Levalbuterol HCl (Xopenex) 0.63 mg IH U3EEROM KESHAWN Losartan Potassium (Cozaar) 25 mg PO DAILY KESHAWN Metoprolol Tartrate (Lopressor) 25 mg PO BRKDIN KESHAWN Ondansetron HCl (Zofran Inj) 4 mg IVP Q6H PRN PRN Reason: Nausea/Vomiting Pneumococcal Polyvalent Vaccine (Pneumovax 23 Vaccine) 0.5 ml IM .ONCE ONE Stop: 07/27/17 12:01 Discontinued Medications Albuterol/Ipratropium (Duoneb 3 Mg/0.5 Mg (3 Ml) Ud) 3 ml IH STAT STA Stop: 07/26/17 15:58 Last Admin: 07/26/17 16:32 Dose: 3 ml Atorvastatin Calcium (Lipitor) 20 mg PO ONCE ONE Stop: 07/26/17 21:55 Last Admin: 07/26/17 23:54 Dose: 20 mg Furosemide (Lasix) 40 mg IVP STAT STA Stop: 07/26/17 17:25 Last Admin: 07/26/17 17:41 Dose: 40 mg MAR Blood Pressure Document 07/26/17 17:41 SRE (Rec: 07/26/17 17:45 SRE [id number]) Blood Pressure Blood Pressure (100/60-150/90) 148/65 IVP Administration Document 07/26/17 17:41 SRE (Rec: 07/26/17 17:45 SRE [id number]) Charges for Administration # of IVP Administrations 1 Ceftriaxone Sodium (Rocephin 1 Gram Ivpb) 1 gm in 100 mls @ 200 mls/hr IVPB STAT STA PRN Reason: Protocol Stop: 07/26/17 18:53 Last Admin: 07/26/17 18:47 Dose: 200 mls/hr eMAR Start Stop Document 07/26/17 18:47 SRE (Rec: 07/26/17 18:48 SRE [id number]) Intravenous Solution Start Date 07/26/17 Start Time 18:48 End Date 07/26/17 End time 19:45 Total Infusion Time 57 Azithromycin (Zithromax 500mg In Ns) 500 mg in 250 mls @ 167 mls/hr IVPB STAT STA PRN Reason: Protocol Stop: 07/26/17 19:52 Last Admin: 07/26/17 19:54 Dose: 167 mls/hr eMAR Start Stop Document 07/26/17 19:54 RG (Rec: 07/26/17 19:57 RG [id number] Intravenous Solution Start Date 07/26/17 Start Time 19:54 Insulin Human NPH (Humulin N) 30 units SC BID STA Stop: 07/26/17 20:16 Last Admin: 07/26/17 20:58 Dose: 30 u MAR Blood Glucose Document 07/26/17 20:58 RG (Rec: 07/26/17 21:00 RG [id number] Blood Glucose Finger Stick Blood Glucose (70-120) 334 Subcutaneous Administrations Document 07/26/17 20:58 RG (Rec: 07/26/17 21:00 RG [id number] Injection Site MAR Injection Site Left Arm Charges for Administration # of Subcutaneous Administrations 1 Levalbuterol HCl (Xopenex) 0.63 mg IH Q2H KESHAWN Last Admin: 07/26/17 20:40 Dose: 0.63 mg Levalbuterol HCl (Xopenex) 0.63 mg IH Q6H KESHAWN Last Admin: 07/26/17 23:55 Dose: 0.63 mg Methylprednisolone (Solu-Medrol) 125 mg IVP STAT STA Stop: 07/26/17 15:58 Last Admin: 07/26/17 16:32 Dose: 125 mg IVP Administration Document 07/26/17 16:32 SRE (Rec: 07/26/17 16:33 SRE [id number]) Charges for Administration # of IVP Administrations 1 Metoprolol Tartrate (Lopressor) 25 mg PO ONCE ONE Stop: 07/27/17 21:55 Metoprolol Tartrate (Lopressor) 25 mg PO ONCE ONE Stop: 07/26/17 23:17 Last Admin: 07/26/17 23:55 Dose: 25 mg MAR Pulse and Blood Pressure Document 07/26/17 23:55 RR (Rec: 07/26/17 23:56 RR [id number] Pulse Pulse Rate (60-90) 82 Blood Pressure Blood Pressure (100/60-150/90) 160/75 Disposition/Present on Arrival - Present on Arrival Any Indicators Present on Arrival: No History of DVT/PE: No History of Uncontrolled Diabetes: Yes Urinary Catheter: No History of Decub. Ulcer: No History Surgical Site Infection Following: CABG - Mediastinitis, None - Disposition Have Diagnosis and Disposition been Completed?: Yes Diagnosis: CHF (congestive heart failure), COPD (chronic obstructive pulmonary disease), BAIN (dyspnea on exertion) Disposition: HOSPITALIZED Disposition Time: 17:00 Patient Plan: Admission Condition: FAIR
[2017-07-26 16:44] LABS: URINE BILIRUBIN NEGATIVE (NEGATIVE); URINE BLOOD TRACE-LYSED (NEGATIVE); URINE GLUCOSE (UA) 500 mg/dL (NEGATIVE); URINE LEUKOCYTE ESTERASE NEGATIVE Leu/uL (NEGATIVE); URINE PROTEIN 100 mg/dL (<30 mg/dL); URINE UROBILINOGEN 0.2 E.U./dL (<1 E.U./dL)
[2017-07-26 16:46] LABS: URINE APPEARANCE CLEAR (CLEAR); URINE COLOR YELLOW (YELLOW)
[2017-07-26 16:47] LABS: VENOUS BLOOD GAS BASE EXCESS 7.4 mmol/L (0.0-2.0); VENOUS BLOOD GAS PO2 53 mm/Hg (30-55); VENOUS BLOOD PH 7.32 (7.32-7.43)
[2017-07-26 16:53] LABS: INR 0.97 (0.93-1.08); PARTIAL THROMBOPLASTIN TIME 27.3 Seconds (25.1-36.5); PROTHROMBIN TIME 11.1 SECONDS (9.4-12.5)
[2017-07-26 17:00] LABS: ALBUMIN 3.6 g/dL (3.0-4.8); ALT/SGPT 126 U/L (7-56); AST/SGOT 104 U/L (17-59); BLOOD UREA NITROGEN 23 mg/dL (7-21); CALCIUM 8.6 mg/dL (8.4-10.5); GFR AFRICAN-AMERICAN > 60; GFR NON-AFRICAN AMERICAN > 60
[2017-07-26 17:01] LABS: URINE RBC 0 - 2 /hpf (0-2)
[2017-07-26 17:02] LABS: URINE BACTERIA FEW (NEG)
--- NOTE | 2017-07-26 17:04 | RAD ---
HISTORY: cough/SOB COMPARISON: 11/13/2016 and 10/04/2015 FINDINGS: LUNGS: Stable well-circumscribed mass left upper lobe measuring 1.4 cm. PLEURA: No significant pleural effusion identified, no pneumothorax apparent. CARDIOVASCULAR: Cardiomegaly. No evidence of acute, significant cardiovascular disease. OSSEOUS STRUCTURES: No significant abnormalities. VISUALIZED UPPER ABDOMEN: Normal. OTHER FINDINGS: None. IMPRESSION: No active disease. No significant interval change compared to the prior examination(s).
[2017-07-26 17:12] LABS: B-TYPE NATRIURETIC PEPTIDE 979 pg/mL (0-450); TROPONIN I 0.09 ng/mL
[2017-07-26] MEDS ORDERED: Azithromycin 500MG/NS 250ml 500 MG/250 ML BAG IVPB STA (18:23)
[2017-07-26] MEDS ORDERED: cefTRIAXone 1 gm 1 GM/100 ML BAG IVPB STA (18:24)
[2017-07-26] MEDS ORDERED: Insulin Regular 1 UNITS/0.01 ML ML IVP STA (20:07)
[2017-07-26] MEDS ORDERED: Insulin Human NPH 1 UNITS/0.01 ML SC STA (20:15)
[2017-07-26] MEDS ORDERED: Levalbuterol 0.63 MG/3 ML Inhal Soln UD IH SCH ×2 (20:30→21:30)
[2017-07-26] MEDS: Insulin Reg-LOW-Coverage SC SCH (23:57)
--- NOTE | 2017-07-27 00:53 | CT ---
EXAM: CT Chest Without Intravenous Contrast EXAM DATE/TIME: 07/26/2017 9:33 PM CLINICAL HISTORY: 87 years old, male; Abnormal findings; Lung mass or nodule; Not specified; Prior surgery; Surgery date: 6+ months; Surgery type: HX tents, HX open heart; Additional info: Maxwell mass please advise TECHNIQUE: Axial computed tomography images of the chest without intravenous contrast. All CT scans at this facility use one or more dose reduction techniques, viz.: automated exposure control; ma/kV adjustment per patient size (including targeted exams where dose is matched to indication; i.e. head); or iterative reconstruction technique. Coronal and sagittal reformatted images were created and reviewed. COMPARISON: DX - CHEST PORTABLE 2017-07-26 16:19; chest 11/13/16 FINDINGS: Lungs and pleural spaces: Trachea and main bronchi are patent.There is no pneumothorax. The lungs are hyperinflated. There is calcified pleural plaque in the anterior right hemithorax. There is only minimal scarring in the upper lobes bilaterally. There are no upper lobe pulmonary nodules. There is more extensive atelectasis/scarring at both lung bases.. There is lobular emphysematous changes at both lung bases. There is a 9.4 x 1.7 cm in spiculated right lower lobe pulmonary nodule, image 83 series were. There is a poorly defined 8mm nodule at the left base. There are atelectatic both lung bases. There are no effusions. Heart and vasculature: Heart size is normal. There are coronary artery calcifications and/or stents. There is no pericardial effusion.Aorta and main pulmonary artery are normal in caliber. There are vascular calcifications. Thyroid: Thyroid is not optimally demonstrated. Bones/joints: Bony structures are osteopenic. There degenerative changes.There are postsurgical changes of median sternotomy. Soft tissues: unremarkable Mediastinum: There are postsurgical changes in the mediastinum with multiple clips. There is shotty mediastinal nodes. There is a mildly prominent subcarinal node, 2 x 1.2 cm. Esophagus is unremarkable. There is a small hiatal hernia. Upper abdomen: There are no acute abnormalities in the visualized portion of the abdomen. There is a 1.6 cm fatty left adrenal nodule. Gallbladder is absent IMPRESSION: No upper lobe pulmonary nodules, calcified pleural plaque in the anterior right hemithorax accounts for the nodular opacity seen on chest x-ray 11/13/16; 9.4 x 1.7 cm mildly spiculated right lower lobe nodule infectious/inflammatory versus neoplastic; poorly defined 8mm left lower lobe nodule; prior median sternotomy and bypass surgery; cholecystectomy Additional nonemergent findings as described above.
[2017-07-27] MEDS: Levalbuterol 0.63 MG/3 ML Inhal Soln UD IH SCH ×4 (02:00→20:02)
[2017-07-27 07:17] LABS: LDL CHOLESTEROL 54 mg/dL (0-129)
[2017-07-27 07:23] LABS: ALB/GLOB RATIO 1.1 (1.1-1.8); ALBUMIN 3.6 g/dL (3.0-4.8); ALT/SGPT 99 U/L (7-56); AST/SGOT 47 U/L (17-59); BLOOD UREA NITROGEN 23 mg/dL (7-21); GFR AFRICAN-AMERICAN > 60; GFR NON-AFRICAN AMERICAN > 60; HDL CHOLESTEROL 37 mg/dL (29-60)
[2017-07-27] MEDS: Insulin Reg-LOW-Coverage SC SCH ×4 (08:30→23:39)
[2017-07-27] MEDS: cefTRIAXone 1 gm 1 GM/100 ML BAG IVPB SCH (10:01)
[2017-07-27] MEDS: Azithromycin 500MG/NS 250ml 500 MG/250 ML BAG IVPB SCH (10:42)
[2017-07-27] MEDS ORDERED: Pneumococcal 23-Valent Vaccine IM ONE (12:00)
--- NOTE | 2017-07-27 14:35 | CARD ---
APPROVED REPORT EKG Measurement Heart [id number] [place] [id number] <Conclusion> Unusual P axis, possible ectopic atrial rhythm frequent APCs Left axis deviation Right bundle branch block Minimal voltage criteria for LVH, may be normal variant Inferior infarct, age undetermined Abnormal ECG
[2017-07-27] MEDS: guaiFENesin DM 100 mg-10 mg/5 ml UD PO PRN (15:58)
--- NOTE | 2017-07-27 17:58 | US ---
HISTORY: Elevated LFTs COMPARISON: Comparison made with prior abdominal ultrasound 11/12/2016 TECHNIQUE: Sonographic evaluation of the right upper quadrant of the abdomen. FINDINGS: LIVER: Liver is enlarged measuring 19.3 cm in length. Smooth contour though increased echogenicity suggesting fatty infiltration however other infiltrative hepatic cellular disease process to be excluded. Parenchyma. No mass. No intrahepatic bile duct dilatation. GALLBLADDER: Cholecystectomy COMMON BILE DUCT: Measures 6.0 mm. No stones. No dilatation. PANCREAS: Limited visualization of the pancreas due to body habitus and bowel gas RIGHT KIDNEY: Measures 11.4 x 5.9 x 6.9 cm in length. Normal echogenicity. No calculus, mass, or hydronephrosis. AORTA: No aneurysmal dilatation. IVC: Unremarkable. OTHER FINDINGS: None . IMPRESSION: Hepatomegaly with fatty hepatic infiltration however other infiltrative hepatocellular disease process not excluded. Cholecystectomy.
[2017-07-28] MEDS: Levalbuterol 0.63 MG/3 ML Inhal Soln UD IH SCH ×4 (01:41→19:58)
--- NOTE | 2017-07-28 03:27 | HP ---
DATE OF EXAM: 07/27/2017 HISTORY OF PRESENT ILLNESS: This 87-year-old gentleman was examined at his bedside in the presence of his daughter, Destiney Paul; and nurse, Cristina Centeno, registered nurse. This is an 87-year-old male who presented to the [facility] complaining of a cough and shortness of breath that was worsening over the past 3 days. In the Emergency Room, he was felt to have exacerbation of chronic obstructive pulmonary disease as well as acute congestive heart failure clinically and was treated with parenteral Lasix, nasal O2, IV antibiotics, and inhalational therapy with improved results. The patient has multiple medical problems, is under the primary care of Dr. Alex Cartagena, shop girl customer solutions specialist in [place], and has atherosclerotic heart disease, insulin-dependent diabetes mellitus, chronic hypertension, hyperlipidemia, and degenerative arthritis. The patient is status post coronary artery bypass approximately 10 years ago, according to his daughter, and also has a history of smoking in his past. The patient, on review of his EMR, had a 2-D echocardiogram and stress test performed in 12/[address] Bridger Moreno. The report showed that he had reversible ischemic changes involving his anterior-inferior apical perez that were reportedly slightly worse than a previous stress test that had been completed earlier. Also, on 2-D echocardiogram, he was noted to have mild mitral regurgitation. A copy of this report was given to his daughter, Destiney, and discussed with the patient at the bedside in the presence of nurse, Jacobo. Also noted was that the patient had a questionable left upper lobe mass on admission chest x-ray that was reported as 1.4 cm. Given his smoking history and complaints of shortness of breath, a chest CT without contrast was completed. This was reviewed. It showed no upper lobe pulmonary nodules, but anterior calcified pleural plaquing in his hemothorax that accounted for his nodular opacities seen on chest x-ray. Newly noted was a spiculated right lower lobe nodule, which was felt to be infectious versus inflammatory or neoplastic. It is seen in his right lower lobe measuring 9.4 x 1.5 cm. This was reviewed with the patient and daughter at bedside in the presence of nurse and recommended to be followed up upon discharge with his primary care oncologist, Dr. Cartagena, and I stated that I clearly recommended PET scan as an outpatient for this followup as well. The patient, also on admission, was noted to have elevated liver function testing which will be evaluated with additional serologies for hepatitis and abdominal ultrasound. REVIEW OF SYSTEMS: HEAD: No headache or seizure. EYE: No change in visual acuity. EAR: No hearing loss. THROAT: No swallowing difficulty. NECK: No stiffness. CARDIAC: As per HPI, he has a history of unstable angina, atherosclerotic heart disease, abnormal stress testing, and status post coronary artery bypass. PULMONARY: Has chronic obstructive pulmonary disease and history of smoking in his past. GI: He denied hematemesis or melena. : No dysuria. SKIN: No rash. VASCULAR: No claudication. PSYCHOLOGICAL: No knowledge of depression. NEUROLOGICAL: No knowledge of stroke. SOCIAL HISTORY: He denies alcohol abuse, substance abuse, and is a former smoker. OUTPATIENT MEDICATIONS: Included Ecotrin, Lipitor, glipizide, Novolin N, Cozaar, Lopressor, and Tradjenta. ALLERGIES: HE DENIED ANY ALLERGIES TO MEDICATION. FAMILY HISTORY: Noncontributory. PHYSICAL EXAMINATION: GENERAL: Patient was in a normal sinus rhythm on the personnel monitor. VITAL SIGNS: His temperature was 98, respirations 18, pulse 73, and blood pressure 153/73 with a pulse ox of 95% on 2 liters nasal O2. HEENT: Head: Normocephalic, atraumatic. Eyes: No icterus. Ears: Clear. Throat: Noninjected. NECK: Supple. HEART: Regular S1, S2. No pathological rubs, murmurs, or gallops. LUNGS: Have occasional rhonchi at both posterior bases. No wheezing. ABDOMEN: Soft. EXTREMITIES: No edema. SKIN: Without rash. NEUROLOGICAL: Intact. PSYCHOLOGICAL: Alert. VASCULAR: Legs warm to touch. LABORATORY DATA: White count 9100, hemoglobin 14.9, hematocrit 46.6, platelets 154,000. PT/INR 0.97, PTT 27.3. Sodium 142, K 5, chloride 95, bicarb 38, BUN 23, creatinine 1, random blood sugar 283. Bilirubin 0.3, AST 47, ALT 99, and alk phos 96. Cholesterol 107, triglyceride 60, LDL 54, and HDL 37. Urinalysis showed few bacteria. T4 was normal at 6.8. Abdominal ultrasound was reviewed; it showed hepatomegaly with fatty hepatic infiltration and that the patient is status post cholecystectomy. IMPRESSION: This is an 87-year-old male admitted with shortness of breath, cough and congestion, rule out decompensated congestive heart failure, rule out exacerbation of chronic obstructive pulmonary disease with bronchial pneumona. PLAN: Plan as outlined with the patient, daughter Destiney at bedside and nurse present, will be to continue Cozaar 25 mg p.o. daily, Ecotrin 81 mg p.o. daily, regular R insulin before meals and at bedtime, Lipitor 20 mg p.o. at dinner time, Lopressor 25 mg p.o. b.i.d., Robitussin 10 mL p.o. every 6 hours p.r.n. cough, Rocephin 1 g IV every 24, Tylenol 650 p.o. every 6 hours p.r.n. pain or temperature greater than 101, Xopenex 0.63 mg inhalational every 6, Zithromax 500 mg IV every 24, and Zofran 4 mg IV every 6 hours p.r.n. nausea or vomiting. The patient is ordered to have a hemoglobin A1c as well as a hepatitis CBC panel status as well as blood cultures. He is on a heart-healthy diabetic diet, was given copies of his stress testing from 12/2016, and a copy of his CT of the chest with his abnormal findings of possible lung neoplasm in his right lower lobe. Patient and daughter, Destiney, are clearly informed that they need to follow this up with their PMD, Dr. Cartagena, upon discharge. I recommend he be considered for cardiac cath given his abnormal stress test and current symptoms once medically stable and this will be discussed with Dr. Moreno by the patient and his daughter as an outpatient. Greater than 75 minutes was spent in the care management, review of labs, orders, x-rays, discussion of this patient's case, outlining of medications, discussion of CT of the chest and his last stress test results and medical therapy for this patient at bedside. All questions were answered. Vanessa Blanco MD [facility]ITAL[facility]alia
[2017-07-28] MEDS: Insulin Reg-LOW-Coverage SC SCH ×4 (07:30→22:09)
[2017-07-28 08:32] VITALS: RESP 20
[2017-07-28 08:40] LABS: HEPATITIS B SURFACE AG Negative (NEGATIVE)
[2017-07-28 08:45] LABS: HEPATITIS A IGM NEGATIVE (NEGATIVE); HEPATITIS B CORE AB NEGATIVE (NEGATIVE)
[2017-07-28 08:57] LABS: HEPATITIS C ANTIBODY NEGATIVE (NEGATIVE)
[2017-07-28] MEDS: cefTRIAXone 1 gm 1 GM/100 ML BAG IVPB SCH (10:46)
[2017-07-28] MEDS: Azithromycin 500MG/NS 250ml 500 MG/250 ML BAG IVPB SCH (11:46)
[2017-07-28] MEDS: Potassium Chloride 20 mEq ER Tab PO SCH (12:46)
[2017-07-28] MEDS: Insulin Human NPH 1 UNITS/0.01 ML SC SCH (16:54)
[2017-07-28] MEDS: guaiFENesin DM 100 mg-10 mg/5 ml UD PO PRN (17:35)
[2017-07-28 18:59] VITALS: O2SAT 94
--- NOTE | 2017-07-28 20:20 | PN ---
DATE: 07/28/2017 SUBJECTIVE: This 87-year-old male was examined on the cardiac unit and this case was reviewed in detail with himself, nurse, Cristina Centeno, registered nurse and daughter, Destiney. The patient remains hospitalized with cough, congestion, and improvement status post parenteral antibiotics, inhalational therapy, and IV Lasix. At present, the patient denies any fever, chills, chest pain, or shortness of breath. He is in a normal sinus rhythm on the cardiac cath lab manager. PHYSICAL EXAMINATION: VITAL SIGNS: Temperature 97, respirations 20, pulse 70, blood pressure 150/70 with a pulse ox of 94%. HEENT: Head: Normocephalic, atraumatic. Eyes: No icterus. Ears: Clear. Throat: Noninjected. NECK: Supple. HEART: Was regular S1, S2. LUNGS: With occasional rhonchi that cleared with coughing. No wheezing, no rales. ABDOMEN: Soft. EXTREMITIES: No edema. SKIN: Without rash. NEUROLOGICAL: Intact. PSYCHOLOGICAL: Anxious. VASCULAR: Legs warm to touch. SKIN: No rash. No ulcerations. LABORATORY DATA: White count 9100, hemoglobin 14.9, hematocrit 46.6, platelets 154,000. PT/INR is 0.97, PTT 27.3. Sodium 142, K 5, chloride 95, bicarb 38, BUN 23, creatinine 1, random blood sugar 314. Bilirubin 0.3, AST 47, ALT 99, alk phos 96. Abdominal ultrasound was reviewed and consistent with fatty liver and status post cholecystectomy. Chest CT was reviewed; it shows no upper lobe pulmonary nodules, calcified pleural plaque in the anterior right hemithorax accounting for nodular opacities seen on chest x-ray from 11/13/2016 with a 9.4 x 1.7 cm mildly spiculated right lower lobe nodule consistent with either infectious, inflammatory issue or neoplastic phenomenon. A poorly defined 8-mm left lower lobe nodule was noted as well with these findings being clearly conveyed to the patient and daughter, Destiney. Copy of report given to daughter, Destiney Beverly as well. IMPRESSION: An 87-year-old male admitted with exacerbation of chronic obstructive pulmonary disease, rule out bronchial pneumonia, comorbidities of atherosclerotic heart disease status post coronary artery bypass with hypertension, insulin-dependent diabetes mellitus, and anxiety neurosis. PLAN: As discussed with patient, nursing, and daughter, will be to continue IV Zithromax 500 mg daily, Xopenex inhalational therapy 0.63 mg inhalational every 6, Rocephin 1 g IV every 24, Robitussin 10 mL p.o. every 6 hours p.r.n. cough, Lopressor 25 mg p.o. b.i.d., Lipitor 20 mg p.o. daily, Lasix 20 mg IV every 12, K-Dur 20 mEq p.o. daily, NPH insulin 30 units before meals breakfast and dinner with regular low-dose insulin protocol before meals and at bedtime, Ecotrin 81 mg p.o. daily, and Cozaar 25 mg p.o. daily. He is scheduled for a basic metabolic panel in the a.m. Blood cultures show no growth at 48 hours. Patient is anxious for discharge to home. He will follow up with his PMD, Dr. Cartagena, free lance model combat systems officer, on 07/29/2017, and will also follow up with Dr. Bridger Moreno within the next 48 hours upon discharge from [facility]. All of the above was discussed in detail with the patient, daughter, and nursing. Greater than 35 minutes was spent in the care management, review of labs, orders, and x-rays. Copies of report were given to daughter for review with PMD and Dr. Moreno. Vanessa Blanco MD MTDThalia
[2017-07-29] MEDS: guaiFENesin DM 100 mg-10 mg/5 ml UD PO PRN (01:29)
[2017-07-29] MEDS: Levalbuterol 0.63 MG/3 ML Inhal Soln UD IH SCH ×3 (01:46→13:35)
--- NOTE | 2017-07-29 01:55 | CP.PCM.PN ---
Subjective - Date & Time of Evaluation Date of Evaluation: 07/29/17 Time of Evaluation: 01:44 - Subjective Subjective: S: A sleeping pill was requested. Patient was seen at bedside. Has no other complaints. Medical record was reviewed. O: Last Vital Signs 3 Temp 98.6 F 07/28/17 18:00 Pulse 81 07/28/17 18:00 Resp 20 07/28/17 18:00 BP 158/62 H 07/29/17 01:31 Pulse Ox 94 L 07/28/17 18:00 Awake, alert, not in distress. LUNGS: Normal breathing pattern. A:Insomnia. P:Benadryl 25 mg PO x1. Objective - Vital Signs/Intake and Output Vital Signs (last 24 hours): Temp Pulse Resp BP Pulse Ox 98.6 F 81 20 158/62 H 94 L 07/28/17 18:00 07/28/17 18:00 07/28/17 18:00 07/29/17 01:31 07/28/17 18:00 Intake and Output: 07/28/17 07/29/17 18:59 06:59 Intake Total 900 500 Output Total 800 300 Balance 100 200 - Medications Medications: Current Medications Acetaminophen (Tylenol 325mg Tab) 650 mg PO Q6H PRN PRN Reason: Fever >100.4 F Aspirin (Ecotrin) 81 mg PO DAILY [facility] Last Admin: 07/28/17 10:30 Dose: 81 mg Atorvastatin Calcium (Lipitor) 20 mg PO DIN [facility] Last Admin: 07/28/17 16:55 Dose: 20 mg Diphenhydramine HCl (Benadryl) 25 mg PO STAT STA Stop: 07/29/17 01:44 Furosemide (Lasix) 20 mg IV Q12H [facility] Last Admin: 07/29/17 01:31 Dose: 20 mg Guaifenesin/Dextromethorphan (Robitussin Dm) 10 ml PO Q6H PRN PRN Reason: Cough Last Admin: 07/29/17 01:29 Dose: 10 ml Ceftriaxone Sodium (Rocephin 1 Gram Ivpb) 1 gm in 100 mls @ 100 mls/hr IVPB DAILY [facility] PRN Reason: Protocol Last Admin: 07/28/17 10:46 Dose: 100 mls/hr Azithromycin (Zithromax 500mg In Ns) 500 mg in 250 mls @ 250 mls/hr IVPB DAILY [facility] PRN Reason: Protocol Last Admin: 07/28/17 11:46 Dose: 250 mls/hr Insulin Human NPH (Humulin N) 30 units SC ACBD [facility] Last Admin: 07/28/17 16:54 Dose: 30 unit Insulin Human Regular (Humulin R Low) 0 units SC ACHS [facility] PRN Reason: Protocol Last Admin: 07/28/17 22:09 Dose: Not Given Levalbuterol HCl (Xopenex) 0.63 mg IH [id number] [facility] Last Admin: 07/28/17 19:58 Dose: 0.63 mg Losartan Potassium (Cozaar) 25 mg PO DAILY [facility] Last Admin: 07/28/17 10:47 Dose: 25 mg Metoprolol Tartrate (Lopressor) 25 mg PO BRKDIN [facility] Last Admin: 07/28/17 16:51 Dose: 25 mg Ondansetron HCl (Zofran Inj) 4 mg IVP Q6H PRN PRN Reason: Nausea/Vomiting Potassium Chloride (K-Dur 20 Meq Er Tab) 20 meq PO BRK [facility] Last Admin: 07/28/17 12:46 Dose: 20 meq - Labs Labs: 07/27/17 06:30 PT 11.1 SECONDS (9.4-12.5) 07/26/17 16:10 INR 0.97 (0.93-1.08) 07/26/17 16:10 APTT 27.3 Seconds (25.1-36.5) 07/26/17 16:10
[2017-07-29 07:24] LABS: BLOOD UREA NITROGEN 36 mg/dL (7-21); CALCIUM 8.5 mg/dL (8.4-10.5); GFR AFRICAN-AMERICAN > 60; GFR NON-AFRICAN AMERICAN > 60
[2017-07-29 07:53] VITALS: BP 141/77; TEMP 97.5
[2017-07-29] MEDS: Insulin Reg-LOW-Coverage SC SCH (08:06)
[2017-07-29] MEDS: Insulin Human NPH 1 UNITS/0.01 ML SC SCH (08:16)
[2017-07-29] MEDS: Potassium Chloride 20 mEq ER Tab PO SCH (08:16)
[2017-07-29 08:17] VITALS: PULSE 72
[2017-07-29] MEDS: cefTRIAXone 1 gm 1 GM/100 ML BAG IVPB SCH (09:01)
[2017-07-29] MEDS: Azithromycin 500MG/NS 250ml 500 MG/250 ML BAG IVPB SCH (09:01)
[2017-07-29] MEDS ORDERED: Cefpodoxime (Vantin) 200 mg Tab PO SCH (22:00)
--- NOTE | 2017-07-30 14:13 | DS ---
DATE OF EXAM: 07/29/2017. FINAL DIAGNOSES: Shortness of breath, resolved; exacerbation of chronic obstructive pulmonary disease, improved; bronchial pneumonia; rule out right lower lung cancer; atherosclerotic heart disease; chronic hypertension; insulin-dependent diabetes mellitus; chronic anxiety. DISPOSITION: Home. The patient is to follow up with his primary care physician, Tristan Cartagena MD within 48 hours. The patient also is to follow up with Dr. Bridger Moreno, Cardiology within the next 2-3 days as well. The patient was given copies of his stress test and 2-D echo report from 01/07/2017 as well as a copy of his CT of the lung on 07/26/2017 to review with his 2 physicians. DISCHARGE MEDS: Novolin N insulin 30 units subcu before breakfast and dinner, Lopressor 25 mg p.o. b.i.d., regular low-dose Humulin insulin coverage before meals and at bedtime protocol, Lasix 20 mg p.o. b.i.d., potassium 20 mEq p.o. daily, Lipitor 20 mg p.o. at bedtime, Augmentin 875 mg p.o. b.i.d. #10, Ecotrin 81 mg p.o. daily SUMMARY: This 87-year-old male presented to [facility] ER and was admitted with cough, congestion and shortness of breath in the setting of history of atherosclerotic heart disease, status post CABG and improvement in ER treatment with IV Lasix and inhalational agent treatment. The patient had a diagnostic workup including a chest x-ray that showed a left upper lung mass measuring 1.4 cm, cardiomegaly, which prompted the completion of a chest CT that was reviewed with the patient and family that showed no upper lobe pulmonary nodules, calcified pleural plaque in his anterior right hemithorax accounting for the nodular opacity seen on chest x-ray, but a 9.4 x 1 cm mildly spiculated right lower lobe nodule was noted consistent with either an infectious, inflammatory versus neoplastic process as well as a poorly defined 8-mm left lower lobe nodule in a gentleman, who is noted to have prior sternotomy for CABG bypass surgery as well as cholecystectomy. The patient's abdominal ultrasound was reviewed with the family. It was consistent with fatty liver and evidence of old cholecystectomy. His hepatitis A, B, C serologies were indeed negative. The patient was treated supportively with IV Lasix, oral beta blockers, inhalational agents and parenteral antibiotic. Blood culture showed no growth at 3 days and at the time of discharge, vital signs were temperature of 97.5, respirations 20, pulse 72 and blood pressure 141/77 with a pulse ox of 94% on room air. Discharge labs showed white count 9100, hemoglobin 14.9, hematocrit 46.6, platelets 154,000. PT/INR 0.97, PTT 27.3. Sodium 141, K 4.8, chloride 96, bicarb 39, BUN 36, creatinine 1.1, random blood sugar 150. His cholesterol was 107, triglycerides 60, LDL 54 and HDL 37. T4 was normal at 6.8. Both blood cultures showed no growth at 3 days. The patient was cleared for discharge to home. He received copies of his recent chest CT and his echocardogram and stress test from December 2016. He was advised not to return to work until cleared by both primary care physician, Dr. Cartagena and Dr. Bridger Moreno from Cardiology. I did express to the family the patient should be considered for a PET scan by his primary care physician who is an oncologist to better assess his right lower lung, CT of the lung CAT scan findings. Also, it may be advisable for him to have a repeat coronary artery cath given his abnormal stress test findings of 01/07/2017 after his presentation to the [facility] at this time. Greater than 35 minutes was spent in the care and management, review of labs, orders, x-rays, outlining of medication and discussion of x-ray reports with the patient, daughter, Destiney at bedside. All questions were answered. The patient was advised for any change in signs and symptoms to present directly to the [facility] ER. Vanessa Blanco MD [facility]
--- NOTE | 2017-07-31 16:54 | PQF CHF ---
07/30/17 Dr. Blanco, Acute CHF is documented in ED notes. Please indicate type, as listed below. Thank you. Clarification of your documentation is requested to better reflect the severity of illness and intensity of treatment of your patient. Indicators present [] Diagnosis of CHF and/or history of CHF [] BNP > 200 [] Imaging Finding of Pulmonary Edema /Pleural Effusions [] Fluid/Volume Overload [] Pitting edema [] Ejection Fraction < 40% (Indicative of Systolic Heart Failure) [] Ejection Fraction > 40% (Indicative of Diastolic Heart Failure) [x] Dyspnea / Orthopenea / Paroxysmal Nocturnal Dyspnea [] Other: Location in the medical record that reflects the above clinical findings: [] Treatment Provided: [] PHYSICIAN'S RESPONSE Based on your medical judgment of the clinical indicators outlined above, are you treating this patient for a known or suspected: [x] Acute CHF [x] Systolic [] Diastolic [] Combined [] Chronic CHF [] Systolic [] Diastolic [] Combined [] Acute on Chronic CHF []Systolic [] Diastolic [] Combined [] CHF due hypertension [] Acute systolic []Chronic systolic [] Acute/ chronic systolic [] Other, please indicate: [] [] If Unable to Determine, please check the box, sign and date. Present On Admission (POA) Indicator: [x] Present at the time of admission [] Not present at the time of admission [] Clinically Undetermined In responding to this query, please exercise your independent professional judgment. The fact that a question is asked does not imply that any particular answer is desired or expected. Thank you for your clarification on this documentation. If you have any questions please call:[ ] * Thank you, [ ] motorboat mechanic inboard/outboard [facility]
== END 2017-07-29 14:21 | disposition home or self-care (01) | DRG 292 ==
LOC: ED 15:11 → ERH 18:27 → 3RSO 21:13
PROVIDERS: ADMIT Internal Medicine; ATTEND Internal Medicine
DX: I11.0 Hypertensive heart disease with heart failure (principal); J44.1 Chronic obstructive pulmonary disease with (acute) exacerbation; I50.21 Acute systolic (congestive) heart failure; I25.110 Atherosclerotic heart disease of native coronary artery with unstable angina pectoris; E11.9 Type 2 diabetes mellitus without complications; E78.5 Hyperlipidemia, unspecified; M19.90 Unspecified osteoarthritis, unspecified site; F41.1 Generalized anxiety disorder; G47.00 Insomnia, unspecified; I34.0 Nonrheumatic mitral (valve) insufficiency; I45.10 Unspecified right bundle-branch block; Z95.1 Presence of aortocoronary bypass graft; I25.2 Old myocardial infarction; Z79.4 Long term (current) use of insulin; Z87.891 Personal history of nicotine dependence; R91.1 Solitary pulmonary nodule; Z90.49 Acquired absence of other specified parts of digestive tract; R94.39 Abnormal result of other cardiovascular function study; K76.0 Fatty (change of) liver, not elsewhere classified

== ENCOUNTER 2017-09-19 09:39 | Emergency (ER) | payer BC, MEDICARE ==
[2017-09-19 10:11] VITALS: BMI 34.0
[2017-09-19 10:17] VITALS: RESP 18
--- NOTE | 2017-09-19 10:38 | ED PDOC ---
Arrival/HPI - General Chief Complaint: Finger,Hand,&Wrist Time Seen by Provider: 09/19/17 10:22 Historian: Patient - History of Present Illness Narrative History of Present Illness (Text): 09/19/17 10:38 This 87 yo male presents to this emergency department complaining of left wrist pain since last night. Patient stated he was doing "row" exercise yesterday during physical therapy exercise. Patient denies fall or injury. He feels his left wrist appears swollen. Denies new somatic complains. Time/Duration: Other (see hpi) Context: Home Past Medical History - Provider Review Nursing Documentation Reviewed: Yes - Infectious Disease Hx of Infectious Diseases: None - Tetanus Immunization Tetanus Immunization: Unknown - Cardiac Hx Cardiac Disorders: Yes Hx HI: Yes Hx Hypertension: Yes - Pulmonary Hx Respiratory Disorders: No Hx Chronic Obstructive Pulmonary Disease (COPD): Yes - Neurological Hx Neurological Disorder: No Hx Alzheimer's Disease: No - HEENT Hx HEENT Disorder: No Hx Epistaxis: No - Renal Hx Renal Disorder: No - Endocrine/Metabolic Hx Diabetes Mellitus Type 2: Yes - Hematological/Oncological Hx Blood Disorders: No - Integumentary Hx Dermatological Disorder: No - Musculoskeletal/Rheumatological Hx Musculoskeletal Disorders: No - Gastrointestinal Hx Gastrointestinal Disorders: No - Genitourinary/Gynecological Hx Genitourinary Disorders: No - Psychiatric Hx Psychophysiologic Disorder: No Hx Depression: No Hx Emotional Abuse: No Hx Physical Abuse: No Hx Substance Use: No - Surgical History Hx Cholecystectomy: No Hx Coronary Artery Bypass Graft: Yes - Anesthesia Hx Anesthesia: Yes Hx Anesthesia Reactions: No Hx Malignant Hyperthermia: No - Suicidal Assessment Feels Threatened In Home Enviroment: No Family/Social History - Physician Review Nursing Documentation Reviewed: Yes Family/Social History: Other (noncontributory) Smoking Status: Former Smoker Hx Alcohol Use: No Hx Substance Use: No Hx Substance Use Treatment: No Allergies/Home Meds Allergies/Adverse Reactions: Allergies No Known Allergies Allergy (Verified 05/07/17 08:17) Home Medications: Home Meds Medication Instructions Recorded Confirmed Aspirin [Aspir 81] 325 mg PO DAILY 05/01/12 09/19/17 Atorvastatin Calcium 20 mg PO HS 05/01/12 09/19/17 Glipizide 20 mg PO DAILY 05/01/12 09/19/17 Linagliptin [Tradjenta] 5 mg PO DAILY 05/01/12 09/19/17 Insulin Human Isophane (NPH) 30 units SC BID 06/07/14 09/19/17 [Novolin N] Losartan [Cozaar] 25 mg PO DAILY 10/21/15 09/19/17 Metoprolol Tartrate [Lopressor] 1 tab PO BID 07/26/17 09/19/17 Fluticasone/Umeclidin/Vilanter 1 puff IH DAILY 09/19/17 09/19/17 [Iker Sigala 100-62.5-25] Review of Systems - Review of Systems Constitutional: Normal. absent: Fatigue, Weight Change, Fevers, Night Sweats Eyes: Normal ENT: Normal Respiratory: Normal Cardiovascular: Normal Gastrointestinal: Normal Genitourinary Male: Normal Musculoskeletal: Other (see hpi) Skin: Normal Neurological: Normal Endocrine: Normal Hemo/Lymphatic: Normal Psychiatric: Normal Physical Exam Vital Signs Temp Pulse Resp BP Pulse Ox 09/19/17 11:56 98.2 F 82 18 164/89 H 95 09/19/17 10:16 98.1 F 72 18 170/91 H 90 L Temperature: Afebrile Blood Pressure: Normal Pulse: Regular Respiratory Rate: Normal Appearance: Positive for: Well-Appearing, Non-Toxic, Comfortable Pain Distress: None Mental Status: Positive for: Alert and Oriented X 3 - Systems Exam Head: No: Atraumatic, Normocephalic Pupils: Present: PERRL Extroacular Muscles: Present: EOMI Conjunctiva: Present: Normal Mouth: Present: Moist Mucous Membranes Upper Extremity: Present: Normal Inspection, Normal ROM, NORMAL PULSES, Tenderness (mild metacarpal tenderness), Neurovascularly Intact, Capillary Refill < 2s. No: Cyanosis, Edema, Swelling, Erythema, Temperature Abnormalties , Deformity Lower Extremity: Present: Normal Inspection, Normal ROM. No: Edema Neurological: Present: GCS=15, CN II-XII Intact, Speech Normal, Motor Func Grossly Intact, Normal Sensory Function, Normal Cerebellar Funct, Gait Normal, Memory Normal Skin: Present: Warm, Dry, Normal Color. No: Rashes Psychiatric: Present: Alert, Oriented x 3, Normal Insight, Normal Concentration Medical Decision Making ED Course and Treatment: 09/19/17 11:34 Re-evaluation. Patient feels better. Discussed results and plan with patient who expresses understanding. All questions answered and there is agreement with the plan to discharge home with instructions. Patient stable for discharge. Return if symptoms persist or worsen Patient came with daughter for non-traumatic left wrist pain. Denies trauma. Patient admits doing PT yesterday. Patient denies skin rash, weakness, or paresthesias. Patient also noted Hx. COPD, and he was recommended to be on O2 at home. He does not have O2 tank yet for outpatient use. Re-evaluation Time: 11:35 Reassessment Condition: Re-examined, Improved - RAD Interpretation Narrative RAD Interpretations (Text): 09/19/17 11:34 PROCEDURE: Left Wrist Radiographs. HISTORY: pain COMPARISON: None. FINDINGS: BONES: Normal. No fracture. JOINTS: Normal. No dislocation. SOFT TISSUES: Normal. OTHER FINDINGS: None. IMPRESSION: Normal left wrist radiographs. Radiology Orders: 09/19/17 10:36 WRIST, LEFT 3 VIEWS [RAD] Stat - Medication Orders Current Medication Orders: Discontinued Medications Ibuprofen (Motrin Tab) 400 mg PO STAT STA Stop: 09/19/17 10:37 Last Admin: 09/19/17 10:42 Dose: 400 mg Tramadol HCl (Ultram) 50 mg PO STAT STA Stop: 09/19/17 10:38 Last Admin: 09/19/17 10:42 Dose: 50 mg MAR Pain Assessment Document 09/19/17 10:42 GMD (Rec: 09/19/17 10:42 GMD [id number]) Pain Reassessment Is this a pain reassessment? No Presence of Pain Presence of Pain Yes Pain Scale Used Pain Scale Used Numeric Location Left, Right or Bilateral Left Pain Location Body Site Wrist Description Intensity of Pain at present 8 Disposition/Present on Arrival - Present on Arrival Any Indicators Present on Arrival: No History of DVT/PE: No History of Uncontrolled Diabetes: Yes Urinary Catheter: No History of Decub. Ulcer: No History Surgical Site Infection Following: CABG - Mediastinitis, None - Disposition Have Diagnosis and Disposition been Completed?: Yes Diagnosis: Wrist pain, acute Disposition: HOME/ ROUTINE Disposition Time: 11:35 Patient Plan: Discharge Condition: GOOD Discharge Instructions (ExitCare): Osteoarthritis (DC) Additional Instructions: Call orthopedist doctor for follow up visit in 1-2 days. Take medication as instructed. Return to emergency if symptoms worsen. Do not drive or operate machinery for at least 12 hours if you take Tylenol with Codeine. Tylenol with Codeine could make you feel drowsy, and could increased chances to fall., so be careful. Prescriptions: Acetaminophen with Codeine [Tylenol with Codeine #3 Tablet] 1 each PO Q6H PRN # 10 tablet PRN Reason: Pain, Severe (8-10) Indomethacin [Indocin] 50 mg PO TID PRN #20 cap PRN Reason: Pain, Severe (8-10) Referrals: Cristino Langley, [Staff Provider] - Follow up with primary Forms: [employer] (Beninese)
--- NOTE | 2017-09-19 11:25 | RAD ---
Date of service: 09/19/2017 PROCEDURE: Left Wrist Radiographs. HISTORY: pain COMPARISON: None. FINDINGS: BONES: Normal. No fracture. JOINTS: Normal. No dislocation. SOFT TISSUES: Normal. OTHER FINDINGS: None. IMPRESSION: Normal left wrist radiographs.
[2017-09-19 12:09] VITALS: BP 164/89; PULSE 82; TEMP 98.2; O2SAT 95
== END 2017-09-19 11:56 | disposition home or self-care (01) ==
LOC: ED 09:39
DX: M25.532 Pain in left wrist (principal)

== ENCOUNTER 2018-02-12 06:31 | Emergency (ER) | payer BC, MEDICARE ==
[2018-02-12 06:32] VITALS: BMI 34.0
--- NOTE | 2018-02-12 07:13 | ED PDOC ---
Arrival/HPI - General Chief Complaint: Finger,Hand,&Wrist Historian: Patient - History of Present Illness Narrative History of Present Illness (Text): 02/12/18 07:12 87 year old male, with past medical history of diabetes, HTN , COPD, and CAD, presents to the emergency department complaining of left finger and left wrist pain since yesterday. Patient states he has been experiencing associated swelling leading him to wake up at 4 am complaining of worsening pain. Patient denies any injury to left hand or left wrist. Patient denies any fevers, chills, headache, dizziness, chest pain, shortness of breath, dyspnea on exertion, cough, abdominal pain, nausea, vomiting, diarrhea, back pain, neck pain, or any other complaints. Patient informs he is right-hand dominant. Time/Duration: 24 hours Symptom Onset: Gradual Symptom Course: Unchanged Activities at Onset: Light Context: Home Past Medical History - Provider Review Nursing Documentation Reviewed: Yes - Infectious Disease Hx of Infectious Diseases: None - Tetanus Immunization Tetanus Immunization: Unknown - Cardiac Hx Hypertension: Yes - Pulmonary Hx Chronic Obstructive Pulmonary Disease (COPD): Yes - Neurological Hx Neurological Disorder: No Hx Alzheimer's Disease: No - HEENT Hx HEENT Disorder: No Hx Epistaxis: No - Renal Hx Renal Disorder: No - Endocrine/Metabolic Hx Diabetes Mellitus Type 2: Yes - Hematological/Oncological Hx Blood Disorders: No - Integumentary Hx Dermatological Disorder: No - Musculoskeletal/Rheumatological Hx Musculoskeletal Disorders: No - Gastrointestinal Hx Gastrointestinal Disorders: No - Genitourinary/Gynecological Hx Genitourinary Disorders: No - Psychiatric Hx Psychophysiologic Disorder: No Hx Depression: No Hx Emotional Abuse: No Hx Physical Abuse: No Hx Substance Use: No - Surgical History Hx Coronary Artery Bypass Graft: Yes - Anesthesia Hx Anesthesia: Yes Hx Anesthesia Reactions: No Hx Malignant Hyperthermia: No - Suicidal Assessment Feels Threatened In Home Enviroment: No Family/Social History - Physician Review Nursing Documentation Reviewed: Yes Family/Social History: Unknown Family HX Smoking Status: Former Smoker Hx Alcohol Use: No Hx Substance Use: No Hx Substance Use Treatment: No Allergies/Home Meds Allergies/Adverse Reactions: Allergies No Known Allergies Allergy (Verified 05/07/17 08:17) Home Medications: Home Meds Medication Instructions Recorded Confirmed RX: Aspirin [Aspir 81] 325 mg PO DAILY 05/01/12 02/12/18 RX: Atorvastatin Calcium 20 mg PO HS 05/01/12 02/12/18 RX: Glipizide 20 mg PO DAILY 05/01/12 02/12/18 RX: Linagliptin [Tradjenta] 5 mg PO DAILY 05/01/12 02/12/18 RX: Insulin Human Isophane (NPH) 30 units SC BID 06/07/14 02/12/18 [Novolin N] RX: Losartan [Cozaar] 25 mg PO DAILY 10/21/15 02/12/18 RX: Metoprolol Tartrate [Lopressor] 1 tab PO BID 07/26/17 02/12/18 Fluticasone/Umeclidin/Vilanter 1 puff IH DAILY 09/19/17 02/12/18 [Trelegy Ellipta 100-62.5-25] Fluticasone/Umeclidin/Vilanter 1 each IH DAILY 02/12/18 02/12/18 [Trelegy Ellipta 100-62.5-25] Review of Systems - Physician Review All systems were reviewed & negative as marked: Yes - Review of Systems Constitutional: absent: Fevers Respiratory: absent: SOB, Cough, Wheezing Cardiovascular: absent: Chest Pain Gastrointestinal: absent: Abdominal Pain Genitourinary Male: absent: Frequency, Hematuria, Urinary Output Changes Musculoskeletal: Joint Swelling (left wrist and left hand), Other (left finger and left wrist pain). absent: Back Pain Skin: absent: Rash Neurological: absent: Headache, Dizziness Physical Exam Vital Signs Reviewed: Yes Vital Signs Temp Pulse Resp BP Pulse Ox 02/12/18 06:47 97.7 F 68 19 159/80 H 96 Temperature: Afebrile Blood Pressure: Normal Pulse: Regular Respiratory Rate: Normal Appearance: Positive for: Well-Appearing, Non-Toxic, Comfortable Pain Distress: None Mental Status: Positive for: Alert and Oriented X 3 - Systems Exam Head: Present: Atraumatic, Normocephalic Pupils: Present: PERRL Extroacular Muscles: Present: EOMI Conjunctiva: Present: Normal Neck: Present: Normal Range of Motion Respiratory/Chest: Present: Clear to Auscultation, Good Air Exchange. No: Respiratory Distress, Accessory Muscle Use Cardiovascular: Present: Regular Rate and Rhythm, Normal S1, S2. No: Murmurs Abdomen: No: Tenderness, Distention, Peritoneal Signs Upper Extremity: Present: NORMAL PULSES, Swelling (swelling to left wrist and mild swelling to left fingers), Neurovascularly Intact, Capillary Refill < 2s, Other (slightly decreased range of motion in left hand and wrist ). No: Cyanosis, Edema Lower Extremity: Present: Normal Inspection. No: Edema Neurological: Present: GCS=15, CN II-XII Intact, Speech Normal Skin: Present: Warm, Dry, Normal Color. No: Rashes Psychiatric: Present: Alert, Oriented x 3, Normal Insight, Normal Concentration Medical Decision Making ED Course and Treatment: 02/12/18 07:25 Impression: 87 year old male presents to the emergency department complaining of left wrist and left finger pain since yesterday. Plan: -- Motrin Tab -- X-ray left wrist -- Reassess and disposition Prior Visits: Notes and results from previous visits were reviewed. Progress Notes: - RAD Interpretation Radiology Orders: 02/12/18 07:11 WRIST, LEFT 3 VIEWS [RAD] Stat - Medication Orders Current Medication Orders: Ibuprofen (Motrin Tab) 600 mg PO STAT STA Stop: 02/12/18 07:12 - Scribe Statement The provider has reviewed the documentation as recorded by the Scribe [place] with Alexus All medical record entries made by the Scribe were at my direction and personally dictated by me. I have reviewed the chart and agree that the record accurately reflects my personal performance of the history, physical exam, medical decision making, and the department course for this patient. I have also personally directed, reviewed, and agree with the discharge instructions and disposition. Disposition/Present on Arrival - Present on Arrival Any Indicators Present on Arrival: No History of DVT/PE: No History of Uncontrolled Diabetes: Yes Urinary Catheter: No History of Decub. Ulcer: No History Surgical Site Infection Following: CABG - Mediastinitis, None - Disposition Have Diagnosis and Disposition been Completed?: Yes Diagnosis: Osteoarthritis Disposition: HOME/ ROUTINE Disposition Time: 07:45 Condition: GOOD Discharge Instructions (ExitCare): Osteoarthritis (DC) Additional Instructions: [place], thank you for letting us take care of you today. Your provider was Sharif Wallace DO. The emergency medical care you received today was directed at your acute symptoms. If you were prescribed any medication, please fill it and take as directed. It may take several days for your symptoms to resolve. Return to the Emergency Department if your symptoms worsen, do not improve, or if you have any other problems. Please contact your doctor or call one of the physicians/clinics you have been referred to that are listed on the Patient Visit Information form that is included in your discharge packet. Bring any paperwork you were given at discharge with you along with any medications you are taking to your follow up visit. Our treatment cannot replace ongoing medical care by a primary care provider outside of the emergency department. Thank you for allowing the [facility] team to be part of your care today. Follow up with your primary care doctor in the near future for re-evaluation and further management. Prescriptions: Acetaminophen with Codeine [Tylenol with Codeine #3 Tablet] 1 each PO Q6 PRN #20 tablet PRN Reason: Pain, Severe (8-10) RX: Indomethacin [Indocin] 50 mg PO Q8 PRN #30 cap PRN Reason: Pain, Moderate (4-7) Forms: [employer] (Sammarinese)
[2018-02-12 08:34] VITALS: BP 162/86; PULSE 69; RESP 20; TEMP 98.2; O2SAT 95
--- NOTE | 2018-02-12 10:47 | RAD ---
Date of service: 02/12/2018 PROCEDURE: Left Wrist Radiographs. HISTORY: r/o fx COMPARISON: None. FINDINGS: BONES: Normal. No fracture. JOINTS: Incompletely visualized osteoarthritic changes. SOFT TISSUES: Soft tissue swelling dorsal aspect at the level of carpal bones. No visualized radiopaque foreign body. OTHER FINDINGS: None. IMPRESSION: Soft tissue swelling without acute articular or osseous abnormality.
== END 2018-02-12 08:35 | disposition home or self-care (01) ==
LOC: ED 06:31
DX: M19.90 Unspecified osteoarthritis, unspecified site (principal); I10 Essential (primary) hypertension; J44.9 Chronic obstructive pulmonary disease, unspecified; I25.10 Atherosclerotic heart disease of native coronary artery without angina pectoris; E11.9 Type 2 diabetes mellitus without complications; Z87.891 Personal history of nicotine dependence